=== PATIENT | male | born 1945 | race Caucasian/White ===

== ENCOUNTER 2020-09-19 11:56 | Day surgery (SDC) | payer OTHER, SELFPAY ==
--- NOTE | 2020-09-19 | PATH_ITS ---
[facility] Accession Number: [id number] . 01 Material submitted: . PART A: esophagus, E-G Junction - EG JUNCTION BIOPSY PART B: colon - CECAL POLYP . 02 Diagnosis: A. Gastroesophageal Junction, Biopsy: Squamocolumnar junctional mucosa with no diagnostic abnormality. Negative for intestinal metaplasia. Negative for dysplasia and malignancy. . B. Cecum, Polyp, Biopsy: Colonic mucosa with a benign lymphoid aggregate and mildly increased intraepithelial lymphocytes with an abnormal subepithelial collagen layer. Please see comment. MRV 09/25/2020 1822 Local . 02 Comment: Part B: Polypoid cecal mucosa shows features suggestive of collagenous colitis in the appropriate clinical and endoscopic setting. . 02 Electronically signed: . Daiana Hernandez MD, Pathologist NPI- [id number] . 01 Gross description: . Part A: EG JUNCTION BIOPSY: Received in formalin are 3 fragment(s) of fortune, soft tissue measuring 0.1 x 0.1 x 0.1 cm to 0.3 x 0.2 x 0.2 cm submitted entirely in 1 cassette(s) Part B: CECAL POLYP: Received in formalin is 1 fragment(s) of fortune, soft tissue measuring 0.3 x 0.3 x 0.2 cm submitted entirely in 1 cassette(s) /EDDIE 09/20/2020 1839 Local . 02 Pathologist provided ICD-10: K63.5 . 02 CPT . 460018, [id number] Performed at: [facility] [address] [id number] MD Griffin Rodriguez MD Phone: [phone] [facility]: [facility] [address] [place], [place] [id number] MD Daiana Hernandez MD Phone: [phone]
--- NOTE | 2020-09-19 08:23 | PM.HP.1 ---
History of Present Illness History of Present Illness Date Patient Seen: 09/19/20 Chief complaint: SDC Narrative: 75-year-old male with a family history of colon cancer family history gastric cancer here for screening, and colon polyp surveillance Meds Home Medications and Allergies Home Medications Medication Instructions Recorded Confirmed Type alfuzosin 10 mg PO DAILY 09/19/20 09/19/20 History finasteride 5 mg PO DAILY 09/19/20 09/19/20 History Allergies Allergy/AdvReac Type Severity Reaction Status Date / Time No Known Drug Allergies Allergy Verified 09/19/20 12:29 Exam Narrative Exam Narrative: General: Patient is well developed, not in apparent distress Cardiovascular: Regular rate and rhythm, no murmurs, rubs, or gallops; no evidence of edema; no palpable abdominal aortic aneurysm Gastrointestinal: Normoactive bowel sounds, soft, nontender, nondistended, no rebound tenderness, no hepatosplenomegaly, no evidence of hernia Assessment & Plan Assessment & Plan narrative: 75-year-old male with a family history of colon cancer and gastric cancer in first-degree relatives here for screening, and colon polyp surveillance Regarding the procedure(s), the risks and potential complications, benefits, and alternatives (including not doing the procedure) were discussed with the patient. The risks include but are not limited to bleeding, splenic injury, infection, perforation which may require surgical intervention, missed lesions, and adverse reactions to sedative medicines. After a question and answer period, the patient agreed to proceed with the procedure(s) and gives informed consent.
[2020-09-19 12:30] VITALS: BP 153/74; PULSE 64; RESP 17; TEMP 36.8; O2SAT 99; BMI 25.3
[2020-09-19 12:52] LABS: COVID19 -Nasal RAPID Negative (Negative)
[2020-09-19] MEDS: SODIUM CHLORIDE 0.9% 1,000 ML 70 ML IV (13:15)
--- NOTE | 2020-09-19 13:30 | P.OP.ENDO_ITS ---
Operative Date/Time/Diagnoses Date of procedure: 09/19/20 Procedure Notes Procedure in detail: Surgeon: Og Pederson MD Procedure: Esophagogastroduodenoscopy with biopsy and colonoscopy with polypectomy Preoperative diagnosis: Family history gastric cancer in 2 first-degree relatives; colon polyp surveillance, family history colon cancer in patient's mother Postoperative diagnosis: Irregular Z-line 43 cm status post biopsy, 3 cm hiatal hernia; cecal polyp status post polypectomy, sigmoid diverticulosis, grade 1 internal hemorrhoids Medications: 2 cc 4% viscous lidocaine; Conscious sedation using 4 mg IV of Midazolam and 100 mcg IV of Fentanyl (for EGD); 5 mg IV of Midazolam and 100 mcg IV of Fentanyl (total for both procedures) Preanesthesia Assessment An H and P was performed/updated and the Px?s ASA class is 2. The procedure was discussed in detail with the patient. The potential risks and complications including infection, bleeding, missed lesions, perforation, need for surgery in case of perforation, prolonged hospital stay, and were explained. A brief question and answer period was allotted and once all questions were answered, informed consent was obtained. The patient was brought back to the procedure room and placed on standard monitoring. The patient?s vital signs were monitored continuously throughout the entire procedure. Prior to starting, a timeout was performed to confirm the patient?s identity, allergies, medications, and procedure. Procedure in detail The patient was placed in left lateral decubitus position and a bite block was inserted. The tip of the upper endoscope was placed into the mouth and advanced without difficulty under direct visualization into the esophagus. Esophagus: There was an irregular Z-line at 43 cm, biopsies were performed to rule out Luna's or early cancer Stomach: 3 cm hiatal hernia; otherwise normal stomach Duodenum: Normal visualized duodenum up to the 2nd portion After the upper endoscopy, preparations were made for the colonoscopy. Once adequate sedation was obtained a EMERITA was performed. The digital rectal examination did not reveal any palpable lesions. The tip of the colonoscope was placed in the anal canal and advanced without difficulty all the way to the cecum which was identified by the appendiceal orifice and the ileocecal valve. In the cecum, a 2 cm sessile polyp was removed by means of cold Jumbo forceps. Resection and retrieval was complete with minimal bleeding In the sigmoid colon, does note of multiple medium-sized diverticula Retroflexion was performed in the rectum which revealed grade 1 internal hemorrhoids The patient tolerated the procedure well and will be brought back to the recovery area to be discharged once criteria are met. The prep was judged to be good and adequate to identify polyps less than 5 mm. The withdrawal time was 9 minutes. The total physician intraservice time was 24 minutes. Complications There were no complications and estimated blood loss was minimal. Recommendations Resume previous diet Continue outpatient medications Follow-up pathology results Repeat colonoscopy in 5 years for surveillance An emergency contact number was given to the patient for any complications relat ed to the procedure
[2020-09-19] MEDS: fentaNYL 250 MCG/5 ML INJ IV (13:35)
[2020-09-19] MEDS: MIDAZOLAM 5 MG/5 ML VIAL IV (13:36)
[2020-09-19] MEDS: LIDOCAINE 4% SOLN 50 ML 20 ML TOP (13:37)
[2020-09-19 14:07] VITALS: BP 116/64; PULSE 63; RESP 12; TEMP 37.1; O2SAT 97
[2020-09-19 14:12] VITALS: BP 110/59; PULSE 60; RESP 12; O2SAT 97
[2020-09-19 14:17] VITALS: BP 107/61; PULSE 72; RESP 12; O2SAT 97
[2020-09-19 14:23] VITALS: BP 123/68; PULSE 68; RESP 16; TEMP 37.2; O2SAT 97
[2020-09-19 15:00] VITALS: BP 126/67; PULSE 64; RESP 16; TEMP 36.7; O2SAT 98
--- NOTE | 2020-09-19 15:21 | SUR.PHASEII ---
1500-Pt up and ambulating gait steady, iv dcd site clear. Pt denies pain or nausea and tolerating po fluids well. All dc instructions given and pt verbalizes understanding. at curbside now. Pt getting dressed and to bathroom voiding without problems
== END 2020-09-19 15:15 | disposition home or self-care (01) ==
PROVIDERS: PCP Family Medicine; Referring Provider Internal Medicine Gastroenterology; Visit Provider Internal Medicine Gastroenterology
PROC: 0DJ08ZZ Inspection of Upper Intestinal Tract, Via Natural or Artificial Opening Endoscopic (ICD-10-PCS; CPT 43235; 2020-09-19 13:30)
PROC: 0DJD8ZZ Inspection of Lower Intestinal Tract, Via Natural or Artificial Opening Endoscopic (ICD-10-PCS; CPT 45378; 2020-09-19 13:30)
DX: Z12.11 Encounter for screening for malignant neoplasm of colon (principal); Z86.010 Personal history of colon polyps; Z80.0 Family history of malignant neoplasm of digestive organs; Z20.822 Contact with and (suspected) exposure to COVID-19; K57.30 Diverticulosis of large intestine without perforation or abscess without bleeding; K64.0 First degree hemorrhoids; K63.5 Polyp of colon
CPT/HCPCS: 45380; 43239; 87635; J2250; J3010

== ENCOUNTER 2025-04-18 06:12 | Inpatient (IN) | payer OTHER, SELFPAY ==
[2025-04-18] VITALS (43 sets, daily range): BP systolic 134–197; BP diastolic 65–102; PULSE 70–101; RESP 11–24; TEMP 36.8; O2SAT 92–98; BMI 31.3
--- NOTE | 2025-04-18 06:37 | ED_ITS ---
HPI - Extremity Injury (Lower) <Pastor Ramirez MD - Last Filed: 04/24/25 22:09> General Chief Complaint: Extremity Injury, Lower Stated Complaint: right knee pain Time Seen by Provider: 04/18/25 06:29 Mode of arrival: EMS History of Present Illness HPI Narrative: 79-year-old male patient with a history of hypertension and prostate cancer along with heart valve repair and anticoagulation on Eliquis complains of worsening right knee pain since yesterday with swelling and no recent trauma. No fever or chills. Related Data Home Medications ?Medication ?Instructions ?Recorded ?Confirmed albuterol 90 mcg/actuation aerosol mcg inhalation 04/01 02/23 inhaler ascorbic acid (vitamin C) PO 04/19/25 calcium phos,dibas-vitamin D3 PO 04/19/25 citalopram 20 mg tablet 20 mg PO BID 04/19/25 Allergies Allergy/AdvReac Type Severity Reaction Status Date / Time No Known Drug Allergies Allergy Verified 09/19/20 12:29 Review of Systems <Pastor Ramirez MD - Last Filed: 04/24/25 22:09> Review of Systems ROS Unobtainable: All systems reviewed & are unremarkable except as noted in HPI and below Musculoskeletal Musculoskeletal: Reports as per HPI Patient History <Pastor Ramirez MD - Last Filed: 04/24/25 22:09> Social History household members: none Smoking Status: Never smoker alcohol intake: current alcohol intake frequency: a few times a month Exam <Pastor Ramirez MD - Last Filed: 04/24/25 22:09> Narrative Exam Narrative: General: Alert and conversant. Mild distress. Appears well nourished and well hydrated Lungs: Nonlabored respiration. Musculoskeletal: Patient has a large effusion around the right knee with no warmth or erythema. Tenderness to range of motion. No bony tenderness. Neuro: Alert and oriented. Cranial nerves, motor, sensory and cerebellar all grossly intact. No focal deficit Skin: Warm and normal color. No rashes Psychological: Normal affect and interaction. No evidence of delusion or psychosis. Normal mood. Initial Vital Signs Initial Vital Signs: Vital Signs Temperature 98.2 F 04/18/25 06:25 Pulse Rate 76 04/18/25 06:25 Respiratory Rate 18 04/18/25 06:25 Blood Pressure 159/77 H 04/18/25 06:25 Pulse Oximetry 96 04/18/25 06:25 Oxygen Delivery Method Room Air 04/18/25 06:25 <Woody Mcintosh MD - Last Filed: 04/18/25 16:37> Initial Vital Signs Initial Vital Signs: Vital Signs Temperature 98.2 F 04/18/25 06:25 Pulse Rate 76 04/18/25 06:25 Respiratory Rate 18 04/18/25 06:25 Blood Pressure 159/77 H 04/18/25 06:25 Pulse Oximetry 96 04/18/25 06:25 Oxygen Delivery Method Room Air 04/18/25 06:25 <Nara Scott DO - Last Filed: 04/26/25 17:06> Initial Vital Signs Initial Vital Signs: Vital Signs Temperature 98.2 F 04/18/25 06:25 Pulse Rate 76 04/18/25 06:25 Respiratory Rate 18 04/18/25 06:25 Blood Pressure 159/77 H 04/18/25 06:25 Pulse Oximetry 96 04/18/25 06:25 Oxygen Delivery Method Room Air 04/18/25 06:25 Course <Pastor Ramirez MD - Last Filed: 04/24/25 22:09> Orders Ordered: Hydrocodone Bitart/Acetaminophen (Hydrocodone/Acet 5/325 Tablet) 2 tab PO Q4H PRN PRN Reason: Pain, Severe (7-10) Last Admin: 04/26/25 01:28 Dose: 2 tab Documented By: Admin: 04/25/25 13:27 Dose: 2 tab Documented By: Admin: 04/25/25 07:42 Dose: 2 tab Documented By: Admin: 04/24/25 21:54 Dose: 2 tab Documented By: Admin: 04/24/25 16:53 Dose: 2 tab Documented By: Admin: 04/24/25 05:48 Dose: 2 tab Documented By: Admin: 04/23/25 14:54 Dose: 2 tab Documented By: Admin: 04/23/25 10:28 Dose: 2 tab Documented By: Admin: 04/23/25 05:35 Dose: 2 tab Documented By: Admin: 04/22/25 21:02 Dose: 2 tab Documented By: Admin: 04/22/25 13:13 Dose: 2 tab Documented By: Admin: 04/22/25 08:20 Dose: 2 tab Documented By: Admin: 04/22/25 01:22 Dose: 2 tab Documented By: Admin: 04/21/25 20:51 Dose: 2 tab Documented By: Admin: 04/21/25 16:39 Dose: 2 tab Documented By: CESocorro Admin: 04/21/25 08:37 Dose: 2 tab Documented By: Admin: 04/21/25 03:28 Dose: 2 tab Documented By: Admin: 04/20/25 19:50 Dose: 2 tab Documented By: Admin: 04/20/25 15:46 Dose: 2 tab Documented By: Admin: 04/20/25 08:25 Dose: 2 tab Documented By: Admin: 04/19/25 18:45 Dose: 2 tab Documented By: MARCIO Apixaban (Apixaban 5 Mg Tablet) 5 mg PO BID [facility] Last Admin: 04/26/25 11:28 Dose: 5 mg Documented By: RACHID Atenolol (Atenolol 25 Mg Tablet) 50 mg PO BID [facility] Last Admin: 04/26/25 09:17 Dose: 50 mg Documented By: Admin: 04/25/25 20:52 Dose: 50 mg Documented By: Admin: 04/25/25 08:51 Dose: 50 mg Documented By: Admin: 04/24/25 21:54 Dose: 50 mg Documented By: Admin: 04/24/25 09:52 Dose: 50 mg Documented By: Admin: 04/23/25 20:57 Dose: 50 mg Documented By: Admin: 04/23/25 10:32 Dose: 50 mg Documented By: Admin: 04/22/25 21:02 Dose: 50 mg Documented By: Admin: 04/22/25 08:20 Dose: 50 mg Documented By: Admin: 04/21/25 20:57 Dose: Not Given Documented By: Admin: 04/21/25 08:37 Dose: 50 mg Documented By: Admin: 04/20/25 20:44 Dose: 50 mg Documented By: Admin: 04/20/25 08:30 Dose: 50 mg Documented By: Admin: 04/19/25 20:43 Dose: 50 mg Documented By: Admin: 04/19/25 18:41 Dose: 50 mg Documented By: MARCIO Citalopram Hydrobromide (Citalopram 10 Mg Tablet) 20 mg PO BID [facility] Last Admin: 04/26/25 09:17 Dose: 20 mg Documented By: Admin: 04/25/25 20:51 Dose: 20 mg Documented By: Admin: 04/25/25 08:51 Dose: 20 mg Documented By: Admin: 04/24/25 21:53 Dose: 20 mg Documented By: Admin: 04/24/25 09:51 Dose: 20 mg Documented By: Admin: 04/23/25 20:57 Dose: 20 mg Documented By: Admin: 04/23/25 10:29 Dose: 20 mg Documented By: Admin: 04/22/25 21:02 Dose: 20 mg Documented By: Admin: 04/22/25 08:20 Dose: 20 mg Documented By: Admin: 04/21/25 20:49 Dose: 20 mg Documented By: Admin: 04/21/25 08:37 Dose: 20 mg Documented By: Admin: 04/20/25 20:45 Dose: 20 mg Documented By: Admin: 04/20/25 08:26 Dose: 20 mg Documented By: Admin: 04/19/25 20:44 Dose: 20 mg Documented By: CHELSIE Hydrocortisone (Hydrocortisone 2.5% Cream 30 Gm) 1 applic TOP BID PRN PRN Reason: Itching Last Admin: 04/25/25 08:56 Dose: 1 applic Documented By: Admin: 04/24/25 17:56 Dose: 1 applic Documented By: Admin: 04/24/25 09:51 Dose: 1 applic Documented By: Admin: 04/23/25 21:02 Dose: 1 applic Documented By: Admin: 04/23/25 12:03 Dose: 1 applic Documented By: Admin: 04/22/25 18:14 Dose: 1 applic Documented By: Admin: 04/22/25 11:37 Dose: 1 applic Documented By: LANE Naloxone HCl (Naloxone 0.4 Mg/Ml Vial) 0.2 mg IV Q2MIN PRN PRN Reason: Opiate Reversal Non-Formulary Medication (Alfuzosin) 10 mg PO DAILY [facility] Last Admin: 04/26/25 09:18 Dose: Not Given Documented By: Admin: 04/25/25 08:52 Dose: Not Given Documented By: Admin: 04/24/25 09:51 Dose: Not Given Documented By: Admin: 04/23/25 10:32 Dose: Not Given Documented By: ESLam Admin: 04/22/25 09:00 Dose: Not Given Documented By: Admin: 04/21/25 09:00 Dose: Not Given Documented By: Admin: 04/20/25 08:32 Dose: Not Given Documented By: JIE Abiraterone 250mg (Tabs) 4 each PO DAILY@0700 [facility] Last Admin: 04/26/25 07:30 Dose: 4 each Documented By: JACINDA Oxycodone/Acetaminophen (Oxycodone/Acetaminophen 5/325 Tablet) 2 tab PO Q6H PRN PRN Reason: Pain, Moderate (4-6) Last Admin: 04/26/25 11:28 Dose: 2 tab Documented By: Admin: 04/25/25 20:51 Dose: 2 tab Documented By: Admin: 04/23/25 20:57 Dose: 2 tab Documented By: Admin: 04/20/25 20:50 Dose: 2 tab Documented By: Admin: 04/19/25 20:43 Dose: 2 tab Documented By: Admin: 04/19/25 10:54 Dose: 2 tab Documented By: DION(2) Polyethylene Glycol (Polyethylene Glycol 3350 17 Gm Powd.Pack) 17 gm PO DAILY [facility] Last Admin: 04/26/25 09:18 Dose: Not Given Documented By: Admin: 04/25/25 08:52 Dose: 17 gm Documented By: Admin: 04/24/25 09:52 Dose: Not Given Documented By: Admin: 04/23/25 10:30 Dose: Not Given Documented By: Admin: 04/22/25 08:20 Dose: 17 gm Documented By: Admin: 04/21/25 16:36 Dose: 17 gm Documented By: LANE Sodium Chloride (Sodium Chloride 0.9% Flush) 10 ml IV PRN PRN PRN Reason: Flush Discontinued Medications Finasteride (Finasteride 5 Mg Tablet) 5 mg PO DAILY [facility] Hydromorphone HCl (Hydromorphone Hcl 0.5 Mg/0.5 Ml Syringe) 0.5 mg IV NOW ONE Stop: 04/18/25 13:21 Last Admin: 04/18/25 13:32 Dose: 0.5 mg Documented By: RLC Hydromorphone HCl (Hydromorphone Hcl 0.5 Mg/0.5 Ml Syringe) 0.5 mg IV NOW ONE Stop: 04/18/25 15:43 Last Admin: 04/18/25 15:46 Dose: 0.5 mg Documented By: RLC Hydromorphone HCl (Hydromorphone Hcl 0.5 Mg/0.5 Ml Syringe) 0.5 mg IV NOW ONE Stop: 04/18/25 19:20 Last Admin: 04/18/25 19:36 Dose: 0.5 mg Documented By: JONNY Acetaminophen (Ofirmev) 1,000 mg in 100 mls @ 400 mls/hr IV NOW ONE Stop: 04/18/25 08:48 Last Infusion: 04/18/25 09:09 Dose: Infused Documented By: ESV(2) Admin: 04/18/25 08:45 Dose: 400 mls/hr Documented By: EB Lidocaine/Epinephrine (Lidocaine 1% W/Epi 10ml) 4 ml INJ INTRA-OP ONE Stop: 04/18/25 14:02 Last Admin: 04/18/25 14:52 Dose: 4 ml Documented By: JONNY Morphine Sulfate (Morphine 4 Mg/Ml Inj) 4 mg IV NOW ONE Stop: 04/18/25 06:52 Last Admin: 04/18/25 07:37 Dose: 4 mg Documented By: SGF Morphine Sulfate (Morphine 4 Mg/Ml Inj) 4 mg IV NOW ONE Stop: 04/18/25 11:09 Last Admin: 04/18/25 11:17 Dose: 4 mg Documented By: JONNY Non-Formulary Medication (Abiraterone ) 1 g PO DAILY [facility] Last Admin: 04/22/25 23:55 Dose: Not Given Documented By: Admin: 04/21/25 09:00 Dose: Not Given Documented By: Admin: 04/20/25 08:32 Dose: Not Given Documented By: JIE Abiraterone 250mg (Tabs) 1 each PO DAILY@0700 [facility] Last Admin: 04/25/25 06:10 Dose: 1 each Documented By: Admin: 04/24/25 05:46 Dose: 1 each Documented By: Admin: 04/23/25 10:36 Dose: 1 each Documented By: Admin: 04/22/25 11:37 Dose: 1 each Documented By: LANE Ondansetron HCl (Ondansetron 4 Mg/2 Ml Inj) 4 mg IV NOW ONE Stop: 04/18/25 11:09 Last Admin: 04/18/25 11:17 Dose: 4 mg Documented By: RLMercedes Sodium Chloride (Sodium Chloride 0.9% Flush) 10 ml IV BID [facility] Last Admin: 04/25/25 08:52 Dose: Not Given Documented By: Admin: 04/24/25 21:54 Dose: 10 ml Documented By: Admin: 04/24/25 10:22 Dose: 10 ml Documented By: Admin: 04/23/25 20:59 Dose: 10 ml Documented By: Admin: 04/23/25 10:36 Dose: 10 ml Documented By: Admin: 04/22/25 21:02 Dose: 10 ml Documented By: Admin: 04/22/25 09:00 Dose: 10 ml Documented By: LANE Vital Signs Vital signs: Vital Signs - 8 hr 04/18/25 11:30 04/18/25 11:31 04/18/25 11:31 Pulse Rate 79 78 Respiratory Rate Blood Pressure 142/98 H Pulse Oximetry 95 94 Oxygen Delivery Method 04/18/25 12:00 04/18/25 12:00 04/18/25 12:30 Pulse Rate 72 75 Respiratory Rate 18 20 Blood Pressure 160/79 H Pulse Oximetry 95 97 Oxygen Delivery Method Room Air 04/18/25 13:00 04/18/25 13:00 04/18/25 13:30 Pulse Rate 73 Respiratory Rate 13 Blood Pressure 171/82 H 170/92 H Pulse Oximetry 97 Oxygen Delivery Method 04/18/25 13:30 04/18/25 14:00 04/18/25 14:00 Pulse Rate 74 76 Respiratory Rate 16 17 Blood Pressure 171/99 H Pulse Oximetry 97 97 Oxygen Delivery Method 04/18/25 14:30 04/18/25 14:30 04/18/25 15:00 Pulse Rate 77 77 Respiratory Rate 14 12 Blood Pressure 193/86 H Pulse Oximetry 97 97 Oxygen Delivery Method 04/18/25 15:01 04/18/25 15:01 04/18/25 15:30 Pulse Rate 76 78 Respiratory Rate 11 L 16 Blood Pressure 165/85 H Pulse Oximetry 96 98 Oxygen Delivery Method 04/18/25 15:30 04/18/25 16:00 04/18/25 16:00 Pulse Rate 79 Respiratory Rate 12 Blood Pressure 173/83 H 173/84 H Pulse Oximetry 95 Oxygen Delivery Method 04/18/25 16:30 04/18/25 16:31 04/18/25 16:31 Pulse Rate 83 81 Respiratory Rate 14 14 Blood Pressure 167/91 H Pulse Oximetry 96 96 Oxygen Delivery Method 04/18/25 17:00 04/18/25 17:30 04/18/25 17:45 Pulse Rate 84 85 93 H Respiratory Rate 11 L 13 20 Blood Pressure Pulse Oximetry 96 96 96 Oxygen Delivery Method 04/18/25 17:45 04/18/25 18:00 04/18/25 18:30 Pulse Rate 88 85 Respiratory Rate 16 22 Blood Pressure 185/81 H Pulse Oximetry 96 95 Oxygen Delivery Method <Woody Mcintosh MD - Last Filed: 04/18/25 16:37> Orders Ordered: Hydrocodone Bitart/Acetaminophen (Hydrocodone/Acet 5/325 Tablet) 2 tab PO Q4H PRN PRN Reason: Pain, Severe (7-10) Last Admin: 04/26/25 01:28 Dose: 2 tab Documented By: Admin: 04/25/25 13:27 Dose: 2 tab Documented By: Admin: 04/25/25 07:42 Dose: 2 tab Documented By: Admin: 04/24/25 21:54 Dose: 2 tab Documented By: Admin: 04/24/25 16:53 Dose: 2 tab Documented By: Admin: 04/24/25 05:48 Dose: 2 tab Documented By: Admin: 04/23/25 14:54 Dose: 2 tab Documented By: Admin: 04/23/25 10:28 Dose: 2 tab Documented By: Admin: 04/23/25 05:35 Dose: 2 tab Documented By: Admin: 04/22/25 21:02 Dose: 2 tab Documented By: Admin: 04/22/25 13:13 Dose: 2 tab Documented By: Admin: 04/22/25 08:20 Dose: 2 tab Documented By: Admin: 04/22/25 01:22 Dose: 2 tab Documented By: Admin: 04/21/25 20:51 Dose: 2 tab Documented By: Admin: 04/21/25 16:39 Dose: 2 tab Documented By: Admin: 04/21/25 08:37 Dose: 2 tab Documented By: Admin: 04/21/25 03:28 Dose: 2 tab Documented By: Admin: 04/20/25 19:50 Dose: 2 tab Documented By: Admin: 04/20/25 15:46 Dose: 2 tab Documented By: Admin: 04/20/25 08:25 Dose: 2 tab Documented By: Admin: 04/19/25 18:45 Dose: 2 tab Documented By: MARCIO Apixaban (Apixaban 5 Mg Tablet) 5 mg PO BID [facility] Last Admin: 04/26/25 11:28 Dose: 5 mg Documented By: RACHID Atenolol (Atenolol 25 Mg Tablet) 50 mg PO BID [facility] Last Admin: 04/26/25 09:17 Dose: 50 mg Documented By: Admin: 04/25/25 20:52 Dose: 50 mg Documented By: Admin: 04/25/25 08:51 Dose: 50 mg Documented By: Admin: 04/24/25 21:54 Dose: 50 mg Documented By: Admin: 04/24/25 09:52 Dose: 50 mg Documented By: Admin: 04/23/25 20:57 Dose: 50 mg Documented By: Admin: 04/23/25 10:32 Dose: 50 mg Documented By: Admin: 04/22/25 21:02 Dose: 50 mg Documented By: Admin: 04/22/25 08:20 Dose: 50 mg Documented By: Admin: 04/21/25 20:57 Dose: Not Given Documented By: Admin: 04/21/25 08:37 Dose: 50 mg Documented By: Admin: 04/20/25 20:44 Dose: 50 mg Documented By: Admin: 04/20/25 08:30 Dose: 50 mg Documented By: Admin: 04/19/25 20:43 Dose: 50 mg Documented By: Admin: 04/19/25 18:41 Dose: 50 mg Documented By: MARCIO Citalopram Hydrobromide (Citalopram 10 Mg Tablet) 20 mg PO BID [facility] Last Admin: 04/26/25 09:17 Dose: 20 mg Documented By: Admin: 04/25/25 20:51 Dose: 20 mg Documented By: Admin: 04/25/25 08:51 Dose: 20 mg Documented By: Admin: 04/24/25 21:53 Dose: 20 mg Documented By: Admin: 04/24/25 09:51 Dose: 20 mg Documented By: Admin: 04/23/25 20:57 Dose: 20 mg Documented By: Admin: 04/23/25 10:29 Dose: 20 mg Documented By: Admin: 04/22/25 21:02 Dose: 20 mg Documented By: Admin: 04/22/25 08:20 Dose: 20 mg Documented By: Admin: 04/21/25 20:49 Dose: 20 mg Documented By: Admin: 04/21/25 08:37 Dose: 20 mg Documented By: Admin: 04/20/25 20:45 Dose: 20 mg Documented By: Admin: 04/20/25 08:26 Dose: 20 mg Documented By: Admin: 04/19/25 20:44 Dose: 20 mg Documented By: CHELSIE Hydrocortisone (Hydrocortisone 2.5% Cream 30 Gm) 1 applic TOP BID PRN PRN Reason: Itching Last Admin: 04/25/25 08:56 Dose: 1 applic Documented By: Admin: 04/24/25 17:56 Dose: 1 applic Documented By: Admin: 04/24/25 09:51 Dose: 1 applic Documented By: Admin: 04/23/25 21:02 Dose: 1 applic Documented By: Admin: 04/23/25 12:03 Dose: 1 applic Documented By: ESLam Admin: 04/22/25 18:14 Dose: 1 applic Documented By: Admin: 04/22/25 11:37 Dose: 1 applic Documented By: LANE Naloxone HCl (Naloxone 0.4 Mg/Ml Vial) 0.2 mg IV Q2MIN PRN PRN Reason: Opiate Reversal Non-Formulary Medication (Alfuzosin) 10 mg PO DAILY [facility] Last Admin: 04/26/25 09:18 Dose: Not Given Documented By: Admin: 04/25/25 08:52 Dose: Not Given Documented By: Admin: 04/24/25 09:51 Dose: Not Given Documented By: Admin: 04/23/25 10:32 Dose: Not Given Documented By: Admin: 04/22/25 09:00 Dose: Not Given Documented By: Admin: 04/21/25 09:00 Dose: Not Given Documented By: Admin: 04/20/25 08:32 Dose: Not Given Documented By: JIE Abiraterone 250mg (Tabs) 4 each PO DAILY@0700 [facility] Last Admin: 04/26/25 07:30 Dose: 4 each Documented By: TD Oxycodone/Acetaminophen (Oxycodone/Acetaminophen 5/325 Tablet) 2 tab PO Q6H PRN PRN Reason: Pain, Moderate (4-6) Last Admin: 04/26/25 11:28 Dose: 2 tab Documented By: Admin: 04/25/25 20:51 Dose: 2 tab Documented By: Admin: 04/23/25 20:57 Dose: 2 tab Documented By: Admin: 04/20/25 20:50 Dose: 2 tab Documented By: Admin: 04/19/25 20:43 Dose: 2 tab Documented By: Admin: 04/19/25 10:54 Dose: 2 tab Documented By: DION(2) Polyethylene Glycol (Polyethylene Glycol 3350 17 Gm Powd.Pack) 17 gm PO DAILY [facility] Last Admin: 04/26/25 09:18 Dose: Not Given Documented By: Admin: 04/25/25 08:52 Dose: 17 gm Documented By: Admin: 04/24/25 09:52 Dose: Not Given Documented By: Admin: 04/23/25 10:30 Dose: Not Given Documented By: ESLam Admin: 04/22/25 08:20 Dose: 17 gm Documented By: Admin: 04/21/25 16:36 Dose: 17 gm Documented By: LANE Sodium Chloride (Sodium Chloride 0.9% Flush) 10 ml IV PRN PRN PRN Reason: Flush Discontinued Medications Finasteride (Finasteride 5 Mg Tablet) 5 mg PO DAILY [facility] Hydromorphone HCl (Hydromorphone Hcl 0.5 Mg/0.5 Ml Syringe) 0.5 mg IV NOW ONE Stop: 04/18/25 13:21 Last Admin: 04/18/25 13:32 Dose: 0.5 mg Documented By: RLC Hydromorphone HCl (Hydromorphone Hcl 0.5 Mg/0.5 Ml Syringe) 0.5 mg IV NOW ONE Stop: 04/18/25 15:43 Last Admin: 04/18/25 15:46 Dose: 0.5 mg Documented By: RLC Hydromorphone HCl (Hydromorphone Hcl 0.5 Mg/0.5 Ml Syringe) 0.5 mg IV NOW ONE Stop: 04/18/25 19:20 Last Admin: 04/18/25 19:36 Dose: 0.5 mg Documented By: RLC Acetaminophen (Ofirmev) 1,000 mg in 100 mls @ 400 mls/hr IV NOW ONE Stop: 04/18/25 08:48 Last Infusion: 04/18/25 09:09 Dose: Infused Documented By: ESV(2) Admin: 04/18/25 08:45 Dose: 400 mls/hr Documented By: EB Lidocaine/Epinephrine (Lidocaine 1% W/Epi 10ml) 4 ml INJ INTRA-OP ONE Stop: 04/18/25 14:02 Last Admin: 04/18/25 14:52 Dose: 4 ml Documented By: RLMercedes Morphine Sulfate (Morphine 4 Mg/Ml Inj) 4 mg IV NOW ONE Stop: 04/18/25 06:52 Last Admin: 04/18/25 07:37 Dose: 4 mg Documented By: SGF Morphine Sulfate (Morphine 4 Mg/Ml Inj) 4 mg IV NOW ONE Stop: 04/18/25 11:09 Last Admin: 04/18/25 11:17 Dose: 4 mg Documented By: RLMercedes Non-Formulary Medication (Abiraterone ) 1 g PO DAILY [facility] Last Admin: 04/22/25 23:55 Dose: Not Given Documented By: Admin: 04/21/25 09:00 Dose: Not Given Documented By: CESocorro Admin: 04/20/25 08:32 Dose: Not Given Documented By: JIE Abiraterone 250mg (Tabs) 1 each PO DAILY@0700 [facility] Last Admin: 04/25/25 06:10 Dose: 1 each Documented By: Admin: 04/24/25 05:46 Dose: 1 each Documented By: Admin: 04/23/25 10:36 Dose: 1 each Documented By: Admin: 04/22/25 11:37 Dose: 1 each Documented By: LANE Ondansetron HCl (Ondansetron 4 Mg/2 Ml Inj) 4 mg IV NOW ONE Stop: 04/18/25 11:09 Last Admin: 04/18/25 11:17 Dose: 4 mg Documented By: RLC Sodium Chloride (Sodium Chloride 0.9% Flush) 10 ml IV BID [facility] Last Admin: 04/25/25 08:52 Dose: Not Given Documented By: Admin: 04/24/25 21:54 Dose: 10 ml Documented By: Admin: 04/24/25 10:22 Dose: 10 ml Documented By: Admin: 04/23/25 20:59 Dose: 10 ml Documented By: Admin: 04/23/25 10:36 Dose: 10 ml Documented By: Admin: 04/22/25 21:02 Dose: 10 ml Documented By: Admin: 04/22/25 09:00 Dose: 10 ml Documented By: LANE Vital Signs Vital signs: Vital Signs - 8 hr 04/18/25 11:30 04/18/25 11:31 04/18/25 11:31 Pulse Rate 79 78 Respiratory Rate Blood Pressure 142/98 H Pulse Oximetry 95 94 Oxygen Delivery Method 04/18/25 12:00 04/18/25 12:00 04/18/25 12:30 Pulse Rate 72 75 Respiratory Rate 18 20 Blood Pressure 160/79 H Pulse Oximetry 95 97 Oxygen Delivery Method Room Air 04/18/25 13:00 04/18/25 13:00 04/18/25 13:30 Pulse Rate 73 Respiratory Rate 13 Blood Pressure 171/82 H 170/92 H Pulse Oximetry 97 Oxygen Delivery Method 04/18/25 13:30 04/18/25 14:00 04/18/25 14:00 Pulse Rate 74 76 Respiratory Rate 16 17 Blood Pressure 171/99 H Pulse Oximetry 97 97 Oxygen Delivery Method 04/18/25 14:30 04/18/25 14:30 04/18/25 15:00 Pulse Rate 77 77 Respiratory Rate 14 12 Blood Pressure 193/86 H Pulse Oximetry 97 97 Oxygen Delivery Method 04/18/25 15:01 04/18/25 15:01 04/18/25 15:30 Pulse Rate 76 78 Respiratory Rate 11 L 16 Blood Pressure 165/85 H Pulse Oximetry 96 98 Oxygen Delivery Method 04/18/25 15:30 04/18/25 16:00 04/18/25 16:00 Pulse Rate 79 Respiratory Rate 12 Blood Pressure 173/83 H 173/84 H Pulse Oximetry 95 Oxygen Delivery Method 04/18/25 16:30 04/18/25 16:31 04/18/25 16:31 Pulse Rate 83 81 Respiratory Rate 14 14 Blood Pressure 167/91 H Pulse Oximetry 96 96 Oxygen Delivery Method 04/18/25 17:00 04/18/25 17:30 04/18/25 17:45 Pulse Rate 84 85 93 H Respiratory Rate 11 L 13 20 Blood Pressure Pulse Oximetry 96 96 96 Oxygen Delivery Method 04/18/25 17:45 04/18/25 18:00 04/18/25 18:30 Pulse Rate 88 85 Respiratory Rate 16 22 Blood Pressure 185/81 H Pulse Oximetry 96 95 Oxygen Delivery Method <Nara Scott, - Last Filed: 04/26/25 17:06> Orders Ordered: Hydrocodone Bitart/Acetaminophen (Hydrocodone/Acet 5/325 Tablet) 2 tab PO Q4H PRN PRN Reason: Pain, Severe (7-10) Last Admin: 04/26/25 01:28 Dose: 2 tab Documented By: Admin: 04/25/25 13:27 Dose: 2 tab Documented By: Admin: 04/25/25 07:42 Dose: 2 tab Documented By: Admin: 04/24/25 21:54 Dose: 2 tab Documented By: Admin: 04/24/25 16:53 Dose: 2 tab Documented By: Admin: 04/24/25 05:48 Dose: 2 tab Documented By: Admin: 04/23/25 14:54 Dose: 2 tab Documented By: Admin: 04/23/25 10:28 Dose: 2 tab Documented By: Admin: 04/23/25 05:35 Dose: 2 tab Documented By: Admin: 04/22/25 21:02 Dose: 2 tab Documented By: Admin: 04/22/25 13:13 Dose: 2 tab Documented By: Admin: 04/22/25 08:20 Dose: 2 tab Documented By: Admin: 04/22/25 01:22 Dose: 2 tab Documented By: Admin: 04/21/25 20:51 Dose: 2 tab Documented By: Admin: 04/21/25 16:39 Dose: 2 tab Documented By: Admin: 04/21/25 08:37 Dose: 2 tab Documented By: Admin: 04/21/25 03:28 Dose: 2 tab Documented By: Admin: 04/20/25 19:50 Dose: 2 tab Documented By: Admin: 04/20/25 15:46 Dose: 2 tab Documented By: Admin: 04/20/25 08:25 Dose: 2 tab Documented By: Admin: 04/19/25 18:45 Dose: 2 tab Documented By: MARCIO Apixaban (Apixaban 5 Mg Tablet) 5 mg PO BID [facility] Last Admin: 04/26/25 11:28 Dose: 5 mg Documented By: RACHID Atenolol (Atenolol 25 Mg Tablet) 50 mg PO BID [facility] Last Admin: 04/26/25 09:17 Dose: 50 mg Documented By: Admin: 04/25/25 20:52 Dose: 50 mg Documented By: Admin: 04/25/25 08:51 Dose: 50 mg Documented By: Admin: 04/24/25 21:54 Dose: 50 mg Documented By: Admin: 04/24/25 09:52 Dose: 50 mg Documented By: Admin: 04/23/25 20:57 Dose: 50 mg Documented By: Admin: 04/23/25 10:32 Dose: 50 mg Documented By: Admin: 04/22/25 21:02 Dose: 50 mg Documented By: Admin: 04/22/25 08:20 Dose: 50 mg Documented By: Admin: 04/21/25 20:57 Dose: Not Given Documented By: Admin: 04/21/25 08:37 Dose: 50 mg Documented By: Admin: 04/20/25 20:44 Dose: 50 mg Documented By: Admin: 04/20/25 08:30 Dose: 50 mg Documented By: Admin: 04/19/25 20:43 Dose: 50 mg Documented By: Admin: 04/19/25 18:41 Dose: 50 mg Documented By: MARCIO Citalopram Hydrobromide (Citalopram 10 Mg Tablet) 20 mg PO BID [facility] Last Admin: 04/26/25 09:17 Dose: 20 mg Documented By: Admin: 04/25/25 20:51 Dose: 20 mg Documented By: Admin: 04/25/25 08:51 Dose: 20 mg Documented By: Admin: 04/24/25 21:53 Dose: 20 mg Documented By: Admin: 04/24/25 09:51 Dose: 20 mg Documented By: Admin: 04/23/25 20:57 Dose: 20 mg Documented By: Admin: 04/23/25 10:29 Dose: 20 mg Documented By: ESLam Admin: 04/22/25 21:02 Dose: 20 mg Documented By: Admin: 04/22/25 08:20 Dose: 20 mg Documented By: Admin: 04/21/25 20:49 Dose: 20 mg Documented By: Admin: 04/21/25 08:37 Dose: 20 mg Documented By: Admin: 04/20/25 20:45 Dose: 20 mg Documented By: Admin: 04/20/25 08:26 Dose: 20 mg Documented By: Admin: 04/19/25 20:44 Dose: 20 mg Documented By: CHELSIE Hydrocortisone (Hydrocortisone 2.5% Cream 30 Gm) 1 applic TOP BID PRN PRN Reason: Itching Last Admin: 04/25/25 08:56 Dose: 1 applic Documented By: Admin: 04/24/25 17:56 Dose: 1 applic Documented By: Admin: 04/24/25 09:51 Dose: 1 applic Documented By: Admin: 04/23/25 21:02 Dose: 1 applic Documented By: Admin: 04/23/25 12:03 Dose: 1 applic Documented By: ESLam Admin: 04/22/25 18:14 Dose: 1 applic Documented By: Admin: 04/22/25 11:37 Dose: 1 applic Documented By: LANE Naloxone HCl (Naloxone 0.4 Mg/Ml Vial) 0.2 mg IV Q2MIN PRN PRN Reason: Opiate Reversal Non-Formulary Medication (Alfuzosin) 10 mg PO DAILY [facility] Last Admin: 04/26/25 09:18 Dose: Not Given Documented By: Admin: 04/25/25 08:52 Dose: Not Given Documented By: Admin: 04/24/25 09:51 Dose: Not Given Documented By: Admin: 04/23/25 10:32 Dose: Not Given Documented By: Admin: 04/22/25 09:00 Dose: Not Given Documented By: Admin: 04/21/25 09:00 Dose: Not Given Documented By: Admin: 04/20/25 08:32 Dose: Not Given Documented By: JIE Abiraterone 250mg (Tabs) 4 each PO DAILY@0700 [facility] Last Admin: 04/26/25 07:30 Dose: 4 each Documented By: JACINDA Oxycodone/Acetaminophen (Oxycodone/Acetaminophen 5/325 Tablet) 2 tab PO Q6H PRN PRN Reason: Pain, Moderate (4-6) Last Admin: 04/26/25 11:28 Dose: 2 tab Documented By: Admin: 04/25/25 20:51 Dose: 2 tab Documented By: Admin: 04/23/25 20:57 Dose: 2 tab Documented By: Admin: 04/20/25 20:50 Dose: 2 tab Documented By: Admin: 04/19/25 20:43 Dose: 2 tab Documented By: Admin: 04/19/25 10:54 Dose: 2 tab Documented By: DION(2) Polyethylene Glycol (Polyethylene Glycol 3350 17 Gm Powd.Pack) 17 gm PO DAILY [facility] Last Admin: 04/26/25 09:18 Dose: Not Given Documented By: Admin: 04/25/25 08:52 Dose: 17 gm Documented By: Admin: 04/24/25 09:52 Dose: Not Given Documented By: Admin: 04/23/25 10:30 Dose: Not Given Documented By: Admin: 04/22/25 08:20 Dose: 17 gm Documented By: Admin: 04/21/25 16:36 Dose: 17 gm Documented By: LANE Sodium Chloride (Sodium Chloride 0.9% Flush) 10 ml IV PRN PRN PRN Reason: Flush Discontinued Medications Finasteride (Finasteride 5 Mg Tablet) 5 mg PO DAILY [facility] Hydromorphone HCl (Hydromorphone Hcl 0.5 Mg/0.5 Ml Syringe) 0.5 mg IV NOW ONE Stop: 04/18/25 13:21 Last Admin: 04/18/25 13:32 Dose: 0.5 mg Documented By: RLMercedes Hydromorphone HCl (Hydromorphone Hcl 0.5 Mg/0.5 Ml Syringe) 0.5 mg IV NOW ONE Stop: 04/18/25 15:43 Last Admin: 04/18/25 15:46 Dose: 0.5 mg Documented By: JONNY Hydromorphone HCl (Hydromorphone Hcl 0.5 Mg/0.5 Ml Syringe) 0.5 mg IV NOW ONE Stop: 04/18/25 19:20 Last Admin: 04/18/25 19:36 Dose: 0.5 mg Documented By: JONNY Acetaminophen (Ofirmev) 1,000 mg in 100 mls @ 400 mls/hr IV NOW ONE Stop: 04/18/25 08:48 Last Infusion: 04/18/25 09:09 Dose: Infused Documented By: DION(2) Admin: 04/18/25 08:45 Dose: 400 mls/hr Documented By: EB Lidocaine/Epinephrine (Lidocaine 1% W/Epi 10ml) 4 ml INJ INTRA-OP ONE Stop: 04/18/25 14:02 Last Admin: 04/18/25 14:52 Dose: 4 ml Documented By: JONNY Morphine Sulfate (Morphine 4 Mg/Ml Inj) 4 mg IV NOW ONE Stop: 04/18/25 06:52 Last Admin: 04/18/25 07:37 Dose: 4 mg Documented By: SGF Morphine Sulfate (Morphine 4 Mg/Ml Inj) 4 mg IV NOW ONE Stop: 04/18/25 11:09 Last Admin: 04/18/25 11:17 Dose: 4 mg Documented By: JONNY Non-Formulary Medication (Abiraterone ) 1 g PO DAILY [facility] Last Admin: 04/22/25 23:55 Dose: Not Given Documented By: Admin: 04/21/25 09:00 Dose: Not Given Documented By: Admin: 04/20/25 08:32 Dose: Not Given Documented By: JIE Abiraterone 250mg (Tabs) 1 each PO DAILY@0700 [facility] Last Admin: 04/25/25 06:10 Dose: 1 each Documented By: Admin: 04/24/25 05:46 Dose: 1 each Documented By: Admin: 04/23/25 10:36 Dose: 1 each Documented By: Admin: 04/22/25 11:37 Dose: 1 each Documented By: LANE Ondansetron HCl (Ondansetron 4 Mg/2 Ml Inj) 4 mg IV NOW ONE Stop: 04/18/25 11:09 Last Admin: 04/18/25 11:17 Dose: 4 mg Documented By: JONNY Sodium Chloride (Sodium Chloride 0.9% Flush) 10 ml IV BID [facility] Last Admin: 04/25/25 08:52 Dose: Not Given Documented By: Admin: 04/24/25 21:54 Dose: 10 ml Documented By: Admin: 04/24/25 10:22 Dose: 10 ml Documented By: Admin: 04/23/25 20:59 Dose: 10 ml Documented By: Admin: 04/23/25 10:36 Dose: 10 ml Documented By: Admin: 04/22/25 21:02 Dose: 10 ml Documented By: Admin: 04/22/25 09:00 Dose: 10 ml Documented By: LANE Vital Signs Vital signs: Vital Signs - 8 hr 04/18/25 11:30 04/18/25 11:31 04/18/25 11:31 Pulse Rate 79 78 Respiratory Rate Blood Pressure 142/98 H Pulse Oximetry 95 94 Oxygen Delivery Method 04/18/25 12:00 04/18/25 12:00 04/18/25 12:30 Pulse Rate 72 75 Respiratory Rate 18 20 Blood Pressure 160/79 H Pulse Oximetry 95 97 Oxygen Delivery Method Room Air 04/18/25 13:00 04/18/25 13:00 04/18/25 13:30 Pulse Rate 73 Respiratory Rate 13 Blood Pressure 171/82 H 170/92 H Pulse Oximetry 97 Oxygen Delivery Method 04/18/25 13:30 04/18/25 14:00 04/18/25 14:00 Pulse Rate 74 76 Respiratory Rate 16 17 Blood Pressure 171/99 H Pulse Oximetry 97 97 Oxygen Delivery Method 04/18/25 14:30 04/18/25 14:30 04/18/25 15:00 Pulse Rate 77 77 Respiratory Rate 14 12 Blood Pressure 193/86 H Pulse Oximetry 97 97 Oxygen Delivery Method 04/18/25 15:01 04/18/25 15:01 04/18/25 15:30 Pulse Rate 76 78 Respiratory Rate 11 L 16 Blood Pressure 165/85 H Pulse Oximetry 96 98 Oxygen Delivery Method 04/18/25 15:30 04/18/25 16:00 04/18/25 16:00 Pulse Rate 79 Respiratory Rate 12 Blood Pressure 173/83 H 173/84 H Pulse Oximetry 95 Oxygen Delivery Method 04/18/25 16:30 04/18/25 16:31 04/18/25 16:31 Pulse Rate 83 81 Respiratory Rate 14 14 Blood Pressure 167/91 H Pulse Oximetry 96 96 Oxygen Delivery Method 04/18/25 17:00 04/18/25 17:30 04/18/25 17:45 Pulse Rate 84 85 93 H Respiratory Rate 11 L 13 20 Blood Pressure Pulse Oximetry 96 96 96 Oxygen Delivery Method 04/18/25 17:45 04/18/25 18:00 04/18/25 18:30 Pulse Rate 88 85 Respiratory Rate 16 22 Blood Pressure 185/81 H Pulse Oximetry 96 95 Oxygen Delivery Method MDM - Extremity Injury (Lower) <Pastor Ramirez MD - Last Filed: 04/24/25 22:09> Lab Data 04/25/25 04:35 04/25/25 04:35 Labs: Lab Results 04/18/25 04/18/25 04/18/25 Range/Units 07:00 12:10 12:15 WBC 7.4 6.7 (4.5-11.0) X10^3/uL RBC 4.47 L 4.39 L (4.5-5.9) X10^6/uL Hgb 13.6 13.1 L (13.5-17.5) g/dL Hct 38.7 L 38.2 L (41-53) % MCV 86.5 87.0 (80-100) fL MCH 30.3 29.8 (26-34) PG MCHC 35.0 34.3 (30-36) % RDW 14.3 14.6 (11.6-14.8) % Plt Count 153 163 (150-400) X10^3/uL Neut % (Auto) 72.9 65.1 (50-75) % Lymph % (Auto) 14.8 L 20.6 L (25-40) % [place] % (Auto) 6.9 7.6 (3-14) % Eos % (Auto) 4.4 H 5.7 H (2-4) % Baso % (Auto) 1.0 1.0 (0-2) % Neut # (Auto) 5400 4400 (8506-8394) /uL Lymph # (Auto) 1100 1400 (6161-1548) /uL [place] # (Auto) 500 500 (0-900) /uL Eos # (Auto) 300 400 (0-450) /uL Baso # (Auto) 100 100 (0-100) /uL ESR 4 (0-15) MM/HR PT 14.5 H (9.4-12.5) SECONDS INR 1.3 (0.9-1.3) APTT 35 (25.1-36.5) SECONDS Sodium 137 135 L (137-145) mmol/L Potassium 3.8 4.0 (3.4-5.1) mmol/L Chloride 107 106 (98-107) mmol/L Carbon Dioxide 23 25 (22-32) mmol/L BUN 24 H 21 H (9-20) mg/dL Creatinine 0.79 0.80 (0.66-1.25) mg/dL Estimated GFR > 60 > 60 (>60) mL/min BUN/Creatinine Ratio 30.4 H 26.3 H (6-22) Glucose 100 H 93 (70-99) mg/dL Lactate 0.8 (0.7-2.1) mmol/L Calcium 9.3 9.2 (8.4-10.2) mg/dL Total Bilirubin 1.6 H 1.7 H (0.2-1.3) mg/dL AST 24 22 (17-59) IU/L ALT 16 16 (<50) IU/L Alkaline Phosphatase 63 62 (38-126) U/L C-Reactive Protein < 0.5 (<1.0) mg/dL Total Protein 6.3 6.0 L (6.3-8.2) g/dL Albumin 4.1 3.9 (3.5-5.0) g/dL Globulin 2.2 2.1 (1.7-4.1) g/dL Albumin/Globulin Ratio 1.9 1.9 (1.0-2.8) Lipase 35 (23-300) U/L Fluid Color Fluid Appearance Fluid RBC Fld Tot Nucleated Cell Fluid Neutrophils % Fluid Lymphocytes % Fluid Eosinophils % Fluid Basophils % Fluid Meso/Macro/[place] % Fluid Abnormal Cells Fluid Crystals (NONE) Body Fluid Clot Fluid Comment U Opiates 300ng/mL cut Positive H (Negative) Ur Oxycodone Screen Negative (Negative) Urine Methadone Screen Negative (Negative) Ur Barbiturates Screen Negative (Negative) U Tricyclic Antidepress Negative (Negative) Ur Phencyclidine Scrn Negative (Negative) Ur Amphetamines Screen Negative (Negative) U Methamphetamines Scrn Negative (Negative) Ur MDMA Scrn (Ecstasy) Negative (Negative) U Benzodiazepines Scrn Negative (Negative) Urine Cocaine Screen Negative (Negative) U Marijuana (THC) Screen Negative (Negative) Urine pH Normal (Normal) Urine Specific [place] Normal (Normal) Ethyl Alcohol < 10 (<10) mg/dL Ur Creatinine Normal (Normal) 04/18/ Range/Units 14:35 WBC (4.5-11.0) X10^3/uL RBC (4.5-5.9) X10^6/uL Hgb (13.5-17.5) g/dL Hct (41-53) % MCV (80-100) fL MCH (26-34) PG MCHC (30-36) % RDW (11.6-14.8) % Plt Count (150-400) X10^3/uL Neut % (Auto) (50-75) % Lymph % (Auto) (25-40) % [place] % (Auto) (3-14) % Eos % (Auto) (2-4) % Baso % (Auto) (0-2) % Neut # (Auto) (1080-0184) /uL Lymph # (Auto) (9812-4944) /uL [place] # (Auto) (0-900) /uL Eos # (Auto) (0-450) /uL Baso # (Auto) (0-100) /uL ESR (0-15) MM/HR PT (9.4-12.5) SECONDS INR (0.9-1.3) APTT (25.1-36.5) SECONDS Sodium (137-145) mmol/L Potassium (3.4-5.1) mmol/L Chloride (98-107) mmol/L Carbon Dioxide (22-32) mmol/L BUN (9-20) mg/dL Creatinine (0.66-1.25) mg/dL Estimated GFR (>60) mL/min BUN/Creatinine Ratio (6-22) Glucose (70-99) mg/dL Lactate (0.7-2.1) mmol/L Calcium (8.4-10.2) mg/dL Total Bilirubin (0.2-1.3) mg/dL AST (17-59) IU/L ALT (<50) IU/L Alkaline Phosphatase (38-126) U/L C-Reactive Protein (<1.0) mg/dL Total Protein (6.3-8.2) g/dL Albumin (3.5-5.0) g/dL Globulin (1.7-4.1) g/dL Albumin/Globulin Ratio (1.0-2.8) Lipase (23-300) U/L Fluid Color Cancelled Fluid Appearance Cancelled Fluid RBC Cancelled Fld Tot Nucleated Cell Cancelled Fluid Neutrophils % Cancelled Fluid Lymphocytes % Cancelled Fluid Eosinophils % Cancelled Fluid Basophils % Cancelled Fluid Meso/Macro/[place] % Cancelled Fluid Abnormal Cells Cancelled Fluid Crystals None present (NONE) Body Fluid Clot Cancelled Fluid Comment Cancelled U Opiates 300ng/mL cut (Negative) Ur Oxycodone Screen (Negative) Urine Methadone Screen (Negative) Ur Barbiturates Screen (Negative) U Tricyclic Antidepress (Negative) Ur Phencyclidine Scrn (Negative) Ur Amphetamines Screen (Negative) U Methamphetamines Scrn (Negative) Ur MDMA Scrn (Ecstasy) (Negative) U Benzodiazepines Scrn (Negative) Urine Cocaine Screen (Negative) U Marijuana (THC) Screen (Negative) Urine pH (Normal) Urine Specific [place] (Normal) Ethyl Alcohol (<10) mg/dL Ur Creatinine (Normal) MDM Narrative Medical decision making narrative: 06:45 I discussed the patient's case and knee symptoms with Dr. Gilliam, orthopedics. She advises that if there is no concern for septic joint we can use elevation, Brandan wraps and pain control and she will see the patient in follow-up this week. Based on exam I believe the patient has a non infectious effusion or possibly hemarthrosis. Labs and x-ray have been ordered. 07:00 Patient care transferred to Dr. Mcintosh at the change of shift with lab work and radiographs pending. <Woody Mcintosh MD - Last Filed: 04/18/25 16:37> Lab Data Labs: Lab Results 04/18/25 04/18/25 04/18/25 Range/Units 07:00 12:10 12:15 WBC 7.4 6.7 (4.5-11.0) X10^3/uL RBC 4.47 L 4.39 L (4.5-5.9) X10^6/uL Hgb 13.6 13.1 L (13.5-17.5) g/dL Hct 38.7 L 38.2 L (41-53) % MCV 86.5 87.0 (80-100) fL MCH 30.3 29.8 (26-34) PG MCHC 35.0 34.3 (30-36) % RDW 14.3 14.6 (11.6-14.8) % Plt Count 153 163 (150-400) X10^3/uL Neut % (Auto) 72.9 65.1 (50-75) % Lymph % (Auto) 14.8 L 20.6 L (25-40) % [place] % (Auto) 6.9 7.6 (3-14) % Eos % (Auto) 4.4 H 5.7 H (2-4) % Baso % (Auto) 1.0 1.0 (0-2) % Neut # (Auto) 5400 4400 (5694-8197) /uL Lymph # (Auto) 1100 1400 (5861-7322) /uL [place] # (Auto) 500 500 (0-900) /uL Eos # (Auto) 300 400 (0-450) /uL Baso # (Auto) 100 100 (0-100) /uL ESR 4 (0-15) MM/HR PT 14.5 H (9.4-12.5) SECONDS INR 1.3 (0.9-1.3) APTT 35 (25.1-36.5) SECONDS Sodium 137 135 L (137-145) mmol/L Potassium 3.8 4.0 (3.4-5.1) mmol/L Chloride 107 106 (98-107) mmol/L Carbon Dioxide 23 25 (22-32) mmol/L BUN 24 H 21 H (9-20) mg/dL Creatinine 0.79 0.80 (0.66-1.25) mg/dL Estimated GFR > 60 > 60 (>60) mL/min BUN/Creatinine Ratio 30.4 H 26.3 H (6-22) Glucose 100 H 93 (70-99) mg/dL Lactate 0.8 (0.7-2.1) mmol/L Calcium 9.3 9.2 (8.4-10.2) mg/dL Total Bilirubin 1.6 H 1.7 H (0.2-1.3) mg/dL AST 24 22 (17-59) IU/L ALT 16 16 (<50) IU/L Alkaline Phosphatase 63 62 (38-126) U/L C-Reactive Protein < 0.5 (<1.0) mg/dL Total Protein 6.3 6.0 L (6.3-8.2) g/dL Albumin 4.1 3.9 (3.5-5.0) g/dL Globulin 2.2 2.1 (1.7-4.1) g/dL Albumin/Globulin Ratio 1.9 1.9 (1.0-2.8) Lipase 35 (23-300) U/L Fluid Color Fluid Appearance Fluid RBC Fld Tot Nucleated Cell Fluid Neutrophils % Fluid Lymphocytes % Fluid Eosinophils % Fluid Basophils % Fluid [place]/Macro/[place] % Fluid Abnormal Cells Fluid Crystals (NONE) Body Fluid Clot Fluid Comment U Opiates 300ng/mL cut Positive H (Negative) Ur Oxycodone Screen Negative (Negative) Urine Methadone Screen Negative (Negative) Ur Barbiturates Screen Negative (Negative) U Tricyclic Antidepress Negative (Negative) Ur Phencyclidine Scrn Negative (Negative) Ur Amphetamines Screen Negative (Negative) U Methamphetamines Scrn Negative (Negative) Ur MDMA Scrn (Ecstasy) Negative (Negative) U Benzodiazepines Scrn Negative (Negative) Urine Cocaine Screen Negative (Negative) U Marijuana (THC) Screen Negative (Negative) Urine pH Normal (Normal) Urine Specific [place] Normal (Normal) Ethyl Alcohol < 10 (<10) mg/dL Ur Creatinine Normal (Normal) 11/18/25 Range/Units 14:35 WBC (4.5-11.0) X10^3/uL RBC (4.5-5.9) X10^6/uL Hgb (13.5-17.5) g/dL Hct (41-53) % MCV (80-100) fL MCH (26-34) PG MCHC (30-36) % RDW (11.6-14.8) % Plt Count (150-400) X10^3/uL Neut % (Auto) (50-75) % Lymph % (Auto) (25-40) % [place] % (Auto) (3-14) % Eos % (Auto) (2-4) % Baso % (Auto) (0-2) % Neut # (Auto) (1246-2348) /uL Lymph # (Auto) (0674-4809) /uL [place] # (Auto) (0-900) /uL Eos # (Auto) (0-450) /uL Baso # (Auto) (0-100) /uL ESR (0-15) MM/HR PT (9.4-12.5) SECONDS INR (0.9-1.3) APTT (25.1-36.5) SECONDS Sodium (137-145) mmol/L Potassium (3.4-5.1) mmol/L Chloride (98-107) mmol/L Carbon Dioxide (22-32) mmol/L BUN (9-20) mg/dL Creatinine (0.66-1.25) mg/dL Estimated GFR (>60) mL/min BUN/Creatinine Ratio (6-22) Glucose (70-99) mg/dL Lactate (0.7-2.1) mmol/L Calcium (8.4-10.2) mg/dL Total Bilirubin (0.2-1.3) mg/dL AST (17-59) IU/L ALT (<50) IU/L Alkaline Phosphatase (38-126) U/L C-Reactive Protein (<1.0) mg/dL Total Protein (6.3-8.2) g/dL Albumin (3.5-5.0) g/dL Globulin (1.7-4.1) g/dL Albumin/Globulin Ratio (1.0-2.8) Lipase (23-300) U/L Fluid Color Cancelled Fluid Appearance Cancelled Fluid RBC Cancelled Fld Tot Nucleated Cell Cancelled Fluid Neutrophils % Cancelled Fluid Lymphocytes % Cancelled Fluid Eosinophils % Cancelled Fluid Basophils % Cancelled Fluid Meso/Macro/[place] % Cancelled Fluid Abnormal Cells Cancelled Fluid Crystals None present (NONE) Body Fluid Clot Cancelled Fluid Comment Cancelled U Opiates 300ng/mL cut (Negative) Ur Oxycodone Screen (Negative) Urine Methadone Screen (Negative) Ur Barbiturates Screen (Negative) U Tricyclic Antidepress (Negative) Ur Phencyclidine Scrn (Negative) Ur Amphetamines Screen (Negative) U Methamphetamines Scrn (Negative) Ur MDMA Scrn (Ecstasy) (Negative) U Benzodiazepines Scrn (Negative) Urine Cocaine Screen (Negative) U Marijuana (THC) Screen (Negative) Urine pH (Normal) Urine Specific [place] (Normal) Ethyl Alcohol (<10) mg/dL Ur Creatinine (Normal) MDM Narrative Medical decision making narrative: 06:45 I discussed the patient's case and knee symptoms with Dr. Gilliam, orthopedics. She advises that if there is no concern for septic joint we can use elevation, Brandan wraps and pain control and she will see the patient in follow-up this week. Based on exam I believe the patient has a non infectious effusion or possibly hemarthrosis. Labs and x-ray have been ordered. 07:00 Patient care transferred to Dr. Mcintosh at the change of shift with lab work and radiographs pending. Lab work reassuring, patient with no redness, no lab work indication of septic joint. However between approximately 7:00 a.m. and 11:00 a.m. patient with significant worsening and enlargement of joint effusion. At that time there was a concern for an active bleed. However given that CT was down and patient was stable decision was made to Brandan wrap the knee and observe. Orthopedics was consulted at outside facility who recommended arthrocentesis. At the time of this addendum at 4:35 p.m. arthrocentesis results pending. Patient much more comfortable. Swelling reduced. Arthrocentesis with approximately 10 mL of marija blood. Patient unable to walk secondary to pain at this time and therefore is also pending social work evaluation for possible help at home. Signed out to Dr. Scott pending these results <Nara Scott, DO - Last Filed: 04/26/25 17:06> Lab Data Labs: Lab Results 04/18/25 04/18/25 04/18/25 Range/Units 07:00 12:10 12:15 WBC 7.4 6.7 (4.5-11.0) X10^3/uL RBC 4.47 L 4.39 L (4.5-5.9) X10^6/uL Hgb 13.6 13.1 L (13.5-17.5) g/dL Hct 38.7 L 38.2 L (41-53) % MCV 86.5 87.0 (80-100) fL MCH 30.3 29.8 (26-34) PG MCHC 35.0 34.3 (30-36) % RDW 14.3 14.6 (11.6-14.8) % Plt Count 153 163 (150-400) X10^3/uL Neut % (Auto) 72.9 65.1 (50-75) % Lymph % (Auto) 14.8 L 20.6 L (25-40) % [place] % (Auto) 6.9 7.6 (3-14) % Eos % (Auto) 4.4 H 5.7 H (2-4) % Baso % (Auto) 1.0 1.0 (0-2) % Neut # (Auto) 5400 4400 (3872-6527) /uL Lymph # (Auto) 1100 1400 (1848-2181) /uL [place] # (Auto) 500 500 (0-900) /uL Eos # (Auto) 300 400 (0-450) /uL Baso # (Auto) 100 100 (0-100) /uL ESR 4 (0-15) MM/HR PT 14.5 H (9.4-12.5) SECONDS INR 1.3 (0.9-1.3) APTT 35 (25.1-36.5) SECONDS Sodium 137 135 L (137-145) mmol/L Potassium 3.8 4.0 (3.4-5.1) mmol/L Chloride 107 106 (98-107) mmol/L Carbon Dioxide 23 25 (22-32) mmol/L BUN 24 H 21 H (9-20) mg/dL Creatinine 0.79 0.80 (0.66-1.25) mg/dL Estimated GFR > 60 > 60 (>60) mL/min BUN/Creatinine Ratio 30.4 H 26.3 H (6-22) Glucose 100 H 93 (70-99) mg/dL Lactate 0.8 (0.7-2.1) mmol/L Calcium 9.3 9.2 (8.4-10.2) mg/dL Total Bilirubin 1.6 H 1.7 H (0.2-1.3) mg/dL AST 24 22 (17-59) IU/L ALT 16 16 (<50) IU/L Alkaline Phosphatase 63 62 (38-126) U/L C-Reactive Protein < 0.5 (<1.0) mg/dL Total Protein 6.3 6.0 L (6.3-8.2) g/dL Albumin 4.1 3.9 (3.5-5.0) g/dL Globulin 2.2 2.1 (1.7-4.1) g/dL Albumin/Globulin Ratio 1.9 1.9 (1.0-2.8) Lipase 35 (23-300) U/L Fluid Color Fluid Appearance Fluid RBC Fld Tot Nucleated Cell Fluid Neutrophils % Fluid Lymphocytes % Fluid Eosinophils % Fluid Basophils % Fluid [place]/Macro/[place] % Fluid Abnormal Cells Fluid Crystals (NONE) Body Fluid Clot Fluid Comment U Opiates 300ng/mL cut Positive H (Negative) Ur Oxycodone Screen Negative (Negative) Urine Methadone Screen Negative (Negative) Ur Barbiturates Screen Negative (Negative) U Tricyclic Antidepress Negative (Negative) Ur Phencyclidine Scrn Negative (Negative) Ur Amphetamines Screen Negative (Negative) U Methamphetamines Scrn Negative (Negative) Ur MDMA Scrn (Ecstasy) Negative (Negative) U Benzodiazepines Scrn Negative (Negative) Urine Cocaine Screen Negative (Negative) U Marijuana (THC) Screen Negative (Negative) Urine pH Normal (Normal) Urine Specific [place] Normal (Normal) Ethyl Alcohol < 10 (<10) mg/dL Ur Creatinine Normal (Normal) 11/18/25 Range/Units 14:35 WBC (4.5-11.0) X10^3/uL RBC (4.5-5.9) X10^6/uL Hgb (13.5-17.5) g/dL Hct (41-53) % MCV (80-100) fL MCH (26-34) PG MCHC (30-36) % RDW (11.6-14.8) % Plt Count (150-400) X10^3/uL Neut % (Auto) (50-75) % Lymph % (Auto) (25-40) % [place] % (Auto) (3-14) % Eos % (Auto) (2-4) % Baso % (Auto) (0-2) % Neut # (Auto) (9225-5848) /uL Lymph # (Auto) (0385-4810) /uL [place] # (Auto) (0-900) /uL Eos # (Auto) (0-450) /uL Baso # (Auto) (0-100) /uL ESR (0-15) MM/HR PT (9.4-12.5) SECONDS INR (0.9-1.3) APTT (25.1-36.5) SECONDS Sodium (137-145) mmol/L Potassium (3.4-5.1) mmol/L Chloride (98-107) mmol/L Carbon Dioxide (22-32) mmol/L BUN (9-20) mg/dL Creatinine (0.66-1.25) mg/dL Estimated GFR (>60) mL/min BUN/Creatinine Ratio (6-22) Glucose (70-99) mg/dL Lactate (0.7-2.1) mmol/L Calcium (8.4-10.2) mg/dL Total Bilirubin (0.2-1.3) mg/dL AST (17-59) IU/L ALT (<50) IU/L Alkaline Phosphatase (38-126) U/L C-Reactive Protein (<1.0) mg/dL Total Protein (6.3-8.2) g/dL Albumin (3.5-5.0) g/dL Globulin (1.7-4.1) g/dL Albumin/Globulin Ratio (1.0-2.8) Lipase (23-300) U/L Fluid Color Cancelled Fluid Appearance Cancelled Fluid RBC Cancelled Fld Tot Nucleated Cell Cancelled Fluid Neutrophils % Cancelled Fluid Lymphocytes % Cancelled Fluid Eosinophils % Cancelled Fluid Basophils % Cancelled Fluid [place]/Macro/[place] % Cancelled Fluid Abnormal Cells Cancelled Fluid Crystals None present (NONE) Body Fluid Clot Cancelled Fluid Comment Cancelled U Opiates 300ng/mL cut (Negative) Ur Oxycodone Screen (Negative) Urine Methadone Screen (Negative) Ur Barbiturates Screen (Negative) U Tricyclic Antidepress (Negative) Ur Phencyclidine Scrn (Negative) Ur Amphetamines Screen (Negative) U Methamphetamines Scrn (Negative) Ur MDMA Scrn (Ecstasy) (Negative) U Benzodiazepines Scrn (Negative) Urine Cocaine Screen (Negative) U Marijuana (THC) Screen (Negative) Urine pH (Normal) Urine Specific [place] (Normal) Ethyl Alcohol (<10) mg/dL Ur Creatinine (Normal) MDM Narrative Medical decision making narrative: 06:45 I discussed the patient's case and knee symptoms with Dr. Gilliam, orthopedics. She advises that if there is no concern for septic joint we can use elevation, Brandan wraps and pain control and she will see the patient in follow-up this week. Based on exam I believe the patient has a non infectious effusion or possibly hemarthrosis. Labs and x-ray have been ordered. 07:00 Patient care transferred to Dr. Mcintosh at the change of shift with lab work and radiographs pending. Lab work reassuring, patient with no redness, no lab work indication of septic joint. However between approximately 7:00 a.m. and 11:00 a.m. patient with significant worsening and enlargement of joint effusion. At that time there was a concern for an active bleed. However given that CT was down and patient was stable decision was made to Brandan wrap the knee and observe. Orthopedics was consulted at outside facility who recommended arthrocentesis. At the time of this addendum at 4:35 p.m. arthrocentesis results pending. Patient much more comfortable. Swelling reduced. Arthrocentesis with approximately 10 mL of marija blood. Patient unable to walk secondary to pain at this time and therefore is also pending social work evaluation for possible help at home. Signed out to Dr. Scott pending these results 04/18/25 Dr. Scott: Patient tap of his knee results were pending plan of callback orthopedic surgery at outside facility. CT is down and has not been available. Report was marija blood on arthrocentesis unfortunately labs clotted and they were unable to obtain a cell count, gram stain is negative for organisms occasional WBC. Cultures are pending, no fluid crystals present. X-ray showed a [id number] joint effusion vascular calcifications nearly complete patellofemoral joint space narrowing with lateral patellar tilt. Jhuq-dh-klnutdea joint space narrowing also seen in the medial patellofemoral compartments. Patient's labs show normal white count, ESR of 4, hemoglobin was 13.6 and repeated at 13.1 platelets are a 163. Chemistries are overall appropriate bilirubin has a little bit elevated C-reactive protein is less than 0.5. AST ALT and lipase are normal. INR 1.3, PTT is 35. Patient has a seen and evaluated by myself patient's left knee has a mild tenderness he was able to stand but that has very uncomfortable moving his knee. Does not appear to be increasingly swollen had Brandan wrap placed. His knee was evaluated there was no ecchymosis. Has a Band-Aid over where he had his tap. Neurovascularly intact without any other swelling or changes has not had any other atypical bruising or bleeding he denies any recent trauma. Spoke with on-call orthopedic surgery Dr. Mcduffie at [facility]. Dr. Mcintosh had consulted earlier in the day. Called back with joint aspiration results cell count was not able to be performed but did not appear to be frankly bloody and g stain showed a few white cells but otherwise negative with culture pending. I suspect this patient has more of a hemarthrosis, Dr. Mcduffie agrees. Recommends compression, decreasing his DOAC as able. Spoke with the patient he is agreeable to decreasing his DOAC at this time. Does not feel that he can discharge home safely he lives alone in his having significant difficulty with ambulation. No other medical cause for admission at this time we will plan for physical therapy eval in the am. CAP COVERER did meet with patient. Discharge Plan Departure Patient Disposition: Admitted As Inpatient Clinical Impression: Hemarthrosis involving knee joint Admit Date/Time: 04/19/25 16:22 Admit Provider: Ronal Calvin
--- NOTE | 2025-04-18 06:46 | DI.RAD.S_ITS ---
PROCEDURE: XR KNEE RT 3V INDICATIONS: Pain and swelling TECHNIQUE: 3 views of the knee were acquired. COMPARISON: None. FINDINGS AND IMPRESSION: Nearly complete patellofemoral joint space narrowing with lateral patellar tilt. Srie-nr-vxdqcfxc joint space narrowing also seen in the medial and patellofemoral compartments. Moderate to large joint effusion. Vascular calcifications. If there is high concern for further derangement, consider MRI evaluation. Dictated by: Guerrero Garcia M.D. on 04/18/2025 at 7:59 Approved by: Guerrero Garcia M.D. on 04/18/2025 at 7:59
[2025-04-18 07:09] LABS: Add Manual Diff / Slide Review NO; Hematocrit 38.7 % (41-53); Hemoglobin 13.6 g/dL (13.5-17.5); Lymphocytes Absolute Auto 1100 /uL (1100-4500); Mean Corpuscular HGB Conc 35.0 % (30-36); Mean Corpuscular Hemoglobin 30.3 PG (26-34); Mean Corpuscular Volume 86.5 fL (80-100); Platelet Count 153 X10^3/uL (150-400)
[2025-04-18 07:24] LABS: Alanine Aminotransferase 16 IU/L (<50); Albumin 4.1 g/dL (3.5-5.0); Albumin Globulin Ratio 1.9 (1.0-2.8); Alkaline Phosphatase 63 U/L (38-126); Blood Urea Nitrogen 24 mg/dL (9-20); Calcium 9.3 mg/dL (8.4-10.2); Carbon Dioxide 23 mmol/L (22-32); Chloride 107 mmol/L (98-107); Estimated Glomerular Filt Rate > 60 mL/min (>60); Globulin 2.2 g/dL (1.7-4.1); Glucose 100 mg/dL (70-99); HEMOLYSIS < 15 (0-50); Potassium 3.8 mmol/L (3.4-5.1); Sodium 137 mmol/L (137-145); Total Protein 6.3 g/dL (6.3-8.2)
[2025-04-18] MEDS: MORPHINE 4 MG/ML INJ IV ×2 (07:37→11:17)
[2025-04-18] MEDS: ACETAMINOPHEN IV 1,000 MG/100 ML VIAL 400 MG IV (08:45)
[2025-04-18] MEDS: ONDANSETRON 4 MG/2 ML INJ IV (11:17)
--- NOTE | 2025-04-18 11:33 | EKG_ITS ---
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
[2025-04-18 12:27] LABS: Add Manual Diff / Slide Review NO; Hematocrit 38.2 % (41-53); Hemoglobin 13.1 g/dL (13.5-17.5); Lymphocytes Absolute Auto 1400 /uL (1100-4500); Mean Corpuscular HGB Conc 34.3 % (30-36); Mean Corpuscular Hemoglobin 29.8 PG (26-34); Mean Corpuscular Volume 87.0 fL (80-100); Platelet Count 163 X10^3/uL (150-400)
[2025-04-18 12:30] LABS: Ur Specific Gravity Normal (Normal)
[2025-04-18 12:31] LABS: Urine MDMA Negative (Negative); Urine Methamphetamines Negative (Negative); Urine Tetrahydrocannabinol Negative (Negative); Urine Tricyclic Antidepressant Negative (Negative)
[2025-04-18 12:33] LABS: INR 1.3 (0.9-1.3); Prothrombin Time 14.5 SECONDS (9.4-12.5)
[2025-04-18 12:34] LABS: UR Morphine/Opiate cutoff 300 Positive (Negative)
[2025-04-18 12:36] LABS: PTT Partial Thromboplastin Tim 35 SECONDS (25.1-36.5)
[2025-04-18 12:43] LABS: Alanine Aminotransferase 16 IU/L (<50); Albumin 3.9 g/dL (3.5-5.0); Albumin Globulin Ratio 1.9 (1.0-2.8); Alkaline Phosphatase 62 U/L (38-126); Blood Urea Nitrogen 21 mg/dL (9-20); Calcium 9.2 mg/dL (8.4-10.2); Carbon Dioxide 25 mmol/L (22-32); Chloride 106 mmol/L (98-107); Estimated Glomerular Filt Rate > 60 mL/min (>60); Ethanol (ETOH) < 10 mg/dL (<10); Globulin 2.1 g/dL (1.7-4.1); Glucose 93 mg/dL (70-99); HEMOLYSIS < 15 (0-50); Lipase 35 U/L (23-300); Potassium 4.0 mmol/L (3.4-5.1); Sodium 135 mmol/L (137-145); Total Protein 6.0 g/dL (6.3-8.2)
[2025-04-18 12:44] LABS: Lactate (Lactic Acid) 0.8 mmol/L (0.7-2.1)
[2025-04-18] MEDS: LIDOCAINE 1% W/EPI 10ML 4 ML INJ (14:52)
[2025-04-18 16:08] LABS: Crystals Body Fluid - IN-HOUSE NONE Present
--- NOTE | 2025-04-18 18:37 | CM.SWNOTE ---
ED AGRICULTURAL CONSULTANT Note Patient is 79 y/o male who presents to the ED via EMS this morning due to concern for new onset knee pain and swelling and inability to ambulate. Patient endorses that symptoms started late last night. Patient's PCP is [facility], patient has [place]. Patient sees Dr. Hobbs at [facility]. Patient has hx of Prostate Cancer, Hypertension, and hx of heart valve repair. Due to knee swelling there was concern that patient may need to be transferred but swelling has been resolved, patient continues to present with knee pain, difficulty ambulating and concern for managing ADLs at home. AGRICULTURAL CONSULTANT enters room to meet with patient, patient presents as A/Ox4. Patient endorses he resides home alone in [place] in an apartment and states that there are 17 steps to get into the apartment. Patient endorses at baseline prior to last night he was independent with all ADLs, drives at baseline, denies any hx of barriers to ambulation and does not require any DME. Patient states he has supports from local religion members and states his son resides in [place]. Patient endorses that he informed his son that he was in the hospital and states that his son is unable to come to visit at this time. ED provider orders PT, PT to evaluate patient tomorrow morning. AGRICULTURAL CONSULTANT discusses Home Health and patient indicates agreement to this plan, patient denies preference for HH agency. Pending disposition, patient to board in ED awaiting PT eval and recommendations. ED AGRICULTURAL CONSULTANT to f/u with plan of care tomorrow. TEODORO Christian Discharge Planning/Care Management CM Discharge Assessment Start: 04/18/25 18:32 Freq: Status: Active Protocol: Document 04/18/25 18:33 LN (Rec: 04/18/25 18:37 LN [id number]) Discharge Planning Assessment Assigned Discharge TEODORO Nam Staff Air Tactical Officer Provider [facility] Insurance [place] Advance Directives? No Advance Directives No on File History Provided By Patient,Medical Record Has Patient been No admitted in last 30 days? Prior Living Apartment/Condo Arrangements Household Members none Type of Drives own vehicle transporation used prior to admit Independent with ADL Yes: at baseline 's Is patient alert and Yes oriented? Needs Assistance Bathing,Meal Prep,Toileting,Home Chores / Shopping With Comment Due to ambulation concerns at this time there is concern for patient managing ADLs at home. Patient/Family Home with Home Health Preference SNF/HH Preference Home with Home Health- no agency preference
[2025-04-19] VITALS (39 sets, daily range): BP systolic 117–179; BP diastolic 66–103; PULSE 72–105; RESP 14–22; TEMP 36.1; O2SAT 91–98; BMI 31.3
--- NOTE | 2025-04-19 11:03 | PT-IP ANOTE ---
Pt declined Physical Therapy evaluation at this time due to having too much pain in his right knee (01/08). Coordinated with his nurse to get pain medication while therapist discussed baseline information with pt. Will check back for evalaution when his pain is better controlled. Pt does not feel he will be able to return home with his right knee pain due to having 17 steps to get up to get to his apt and he lives alone.
--- NOTE | 2025-04-19 11:55 | PC.NURSE ---
Pt was given full bed change and melissa care after incontinence episode. Pt's legs and knees were floated with pillows. Pt's R knee was unwrapped and ice pack was provided. Pt's O2 sat currently 98% on 2L NC. O2 was turned off at this time for RA trial. Pt endorses pain level is tolerable post medical coordinator pesticide use (see JUL). Pt was contacted for repeat attempt at evaluation. Pt's primary nurse notified.
--- NOTE | 2025-04-19 14:00 | PT.IIE ---
Physical Therapy Inpatient Evaluation M1 PT IP Prior Functional Status Start: 04/19/25 11:05 Freq: Status: Active Protocol: Document 04/19/25 11:06 DLM (Rec: 04/19/25 11:09 DLM Desktop) Medical Review Prior Functional Status Medical History Yes Reviewed Diet/Fluid Regular Consistency Communication WFL Mobility and Gait Independent without device Activities of Daily Independent. He drives Living and IADL's Prior Functional He has been going to MD visits and medical appointments Level (Other details related to his prostate cancer. ) He has support of local [employer] and [employer]. His DIL works. His Son lives in [place]. He can not think of anywhere else he can stay at discharge (no family/friends) that would have a more accessible home. Social History Household Members none Living Arrangements Apartment/Condo Number of Floors ( One Floor Floors) Number of Stairs To 17 steps to enter with bilateral rails, inside stairs Enter/Railing? 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 [employer] Additional Social the 4WW belonged to his History Comment M2 PT-IP Current Condition Start: 04/19/25 11:05 Freq: Status: Active Protocol: Document 04/19/25 14:00 DLM (Rec: 04/19/25 14:24 DLM Desktop) Physical Therapy Current Condition Current Condition Evaluation Date 04/19/25 Treatment Diagnosis right knee injury and pain, impaired gait and mobility Onset Date 04/18/25 M3 PT-IP Subjective Start: 04/19/25 11:05 Freq: Status: Active Protocol: Document 04/19/25 14:00 DLM (Rec: 04/19/25 14:24 DLM Desktop) Subjective Physical Therapy Visit Type Type Initial Evaluation Visit Start Time 13:05 Visit Stop Time 14:00 Notes 55 min Number of FURNITURE CLEANER Visits 0 Physical Therapy Visit Comments Patient Comments He does not feel safe to go home. He is agreeable to going to rehab. Patient Goals Get well and return home. Go visit family for Thanksgiving. Therapy Pain Assessment Pain When Pain Assessed After Treatment Pain Present Pain Present Pain Reported Location Right Knee Intensity 4 Scale Used Numeric (0 - 10) Description Aching,Stabbing,Tender Pain Behaviors Facial Grimacing,Guarding,Wincing Pain Management Apply Cold,Elevation,Modification of Treatment,Re- Techniques positioning,Timing of Activity with Medications M4 PT-IP Mobility and Gait Start: 04/19/25 11:05 Freq: Status: Active Protocol: Document 04/19/25 14:00 DLM (Rec: 04/19/25 14:24 DLM Desktop) PT-Bed Mobility Assessment Supine to Sit Supine to Sit Minimal Assistance,Head of Bed Elevated,Bedrails Sit to Supine Sit to Supine Moderate Assistance,Bedrails Scooting Scooting to Edge of Contact Guard Assistance Bed PT-Transfer Assessment Sit to and From Stand Sit to and from Minimal Assistance,Moderate Assistance,Use of Upper Stand Extremities Equipment Transfer Assistive Gait Belt,Front Wheeled Walker Device Transfers Transfer Destination Chair Transfer Technique Stand Pivot Transfer Ability Level of Assist Minimal Assistance,Use of Upper Extremities Comments Mobility Comments Pt able to stand with FWW but holding right foot off floor. He reports increased knee pain with attempts to set foot on floor. In sitting he initially could not set foot on floor but he gradually progressed to tolerating his heel on floor when sitting edge of stretcher and later foot flat on floor seated in chair. Pt able to progress to transfer ED stretcher to chair and back this visit. He holds right foot off floor and scoots right foot on floor. He is not able to hop on left LE at this time. He needs assist to manage the FWW during the transfer. Gait Assessment Comments Gait Comments He is not able to progress to gait at this time Stair Climbing Assessment Comments Stair Climbing unable to assess stairs Comments PT-Balance Assessment Sitting Balance and Reactions Static Sitting Normal Balance Ability Dynamic Sitting Normal Balance Ability Standing Balance and Reactions Static Standing Fair Balance Ability Dynamic Standing Fair Balance Ability Device Used FWW M5 PT-IP Objective Assessments Start: 04/19/25 11:05 Freq: Status: Active Protocol: Document 04/19/25 14:00 DLM (Rec: 04/19/25 14:24 DLM Desktop) Orientation Orientation/Cognition Level of Alertness Alert Orientation Name,Age,Birthday,Month,Date,Year,Day of Week,Place, Situation Safety Awareness Understands Safety Issues Memory Description No Deficits Noted Comments Mild word finding difficulty intermittently during this visit. Gross Range of Motion Upper Extremity ROM Assessment Bilaterally Impaired Impairments shoulder flexion end range stiffness and pain, limited to about 100 degrees of flexion Lower Extremity ROM Assessment Right Impaired Impairments poor tolerance moving right knee, holds knee in about 30 degrees of flexion in supine, able to flex about 70 degrees sitting in chair edema and pain limit right knee ROM Strength Upper Extremity Strength Assessment Within Functional Limits Lower Extremity Strength Assessment Right Impaired Hip needs assist to move right LE in bed and sitting Knee very painful to actively move knee, pain with quad isometric Ankle moving actively with mild knee pain Coordination Assessment Gross Coordination Gross Coordination WNL Assessment Coordination mild increased tremors with a lot of effort during Comments mobility Sensation Assessment Sensation Gross Sensation Right UE Impaired,Left UE Impaired,Right LE Impaired, Left LE Impaired Sensation Numbness,Tingling Description Comments Sensation Comments 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 Muscle Tone Muscle Tone WNL Yes M6 PT-IP Treatment Start: 04/19/25 11:05 Freq: Status: Active Protocol: Document 04/19/25 14:00 DLM (Rec: 04/19/25 14:24 DLM Desktop) Physical Therapy Treatment Exercises Exercises Ankle Pumps,Quad Sets Education Education Provided Safety Other Treatments Other Treatment educated pt in keeping knee in as much extension as Performed tolerated in supine to manage knee ROM M7 PT-IP Assessment and Plan Start: 04/19/25 11:05 Freq: Status: Active Protocol: Document 04/19/25 14:00 DLM (Rec: 04/19/25 14:24 DLM Desktop) PT Summary Assessment and Plan Potential Rehabilitation Good Potential Status of Condition Evolving at Evaluation Summary Impairments Pain,ROM,Strength,Balance,Coordination,Sensation,Bed Mobility,Transfers,Gait,Activity Tolerance Assessment Summary Eulalio is alert and resting on a stretcher in E.D. He reports sudden onset of right knee pain and swelling at home without trauma. Pt is on Eliquis. Arthrocentesis showed 10 ml blood from his right knee. Pt is fearful of moving his right knee due to his high level of pain. He gradually progressed to standing with the FWW and transfers to/from a chair with FWW and one person assist. He is not able to use right LE functionally in standing and holds right foot up off the floor. He is not able to hop on left LE with the FWW to progress to gait. He is independent at baseline without a device. He has to be able to go up 17 steps to get back into his apt. He has been undergoing treatment for his prostate cancer before this ED visit. He is not safe to discharge home alone at this time. Recommend SNF rehab at discharge to assist with his functional recovery including gait and stairs as well as right knee pain management. Goals Bed Mobility Goal Independent Transfer Goal Independent,Front Wheeled Walker Gait Goal Independent,Front Wheel Walker Gait Distance 150 feet Other Goals Up/down 17 steps with bilateral rails and CG assist. Days to Meet Goals 15 Frequency of Treatment Frequency Of Once a Day Treatment Treatment Plan Physical Therapy Bed Mobility Training,Transfer Training,Gait Training, Treatment Plan Therapeutic Exercise,Balance Retraining,Discharge Planning,Hot or Cold Pack,Neuromuscular Re-ed,Manual Therapy Other pain management right knee Recommendations and Next Treatment Focus Weight Bearing Status Weight Bearing Weight Bear as Tolerated Status Allowed Weight right knee Bearing Amount ( enter % or #) (%) Recommendations To Nursing Amount of Assist 1 Person Assist Needed Discharge Recommendations PT Discharge SNF Rehab Recommendations Other Discharge not safe to return home alone Recommendations Equipment Needed for anticipate FWW needed but defer to SNF Home Before Discharge Transportation Needs Wheelchair/Cabulance at Discharge - PT assist 1
--- NOTE | 2025-04-19 16:52 | P.HP_ITS ---
History of Present Illness History of Present Illness Date Patient Seen: 04/19/25 Chief complaint: right knee pain Narrative: Chief complaint: Hemarthrosis causing right knee pain History of present illness: 79-year-old male who lives alone evaluated in the emergency department for severe knee pain with findings of knee arthrosis. Below is the emergency room narrative. Apparently patient was attempted to be placed or find a disposition for multiple emergency room shift but were unable to accomplish such. Request for the hospitalist service to place on the floor due to a very prolonged emergency room stay until a long-term facility disposition could be arranged for the patient. 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 Gilliam, orthopedics. She advises that if there is no concern for septic joint we can use elevation, Brandan wraps and pain control and she will see the patient in follow-up this week. Based on exam I believe the patient has a non infectious effusion or possibly hemarthrosis. Labs and x-ray have been ordered. 07:00 Patient care transferred to Dr. Mcintosh at the change of shift with lab work and radiographs pending. Lab work reassuring, patient with no redness, no lab work indication of septic joint. However between approximately 7:00 a.m. and 11:00 a.m. patient with significant worsening and enlargement of joint effusion. At that time there was a concern for an active bleed. However given that CT was down and patient was stable decision was made to Brandan wrap the knee and observe. Orthopedics was consulted at outside facility who recommended arthrocentesis. At the time of this addendum at 4:35 p.m. arthrocentesis results pending. Patient much more comfortable. Swelling reduced. Arthrocentesis with approximately 10 mL of marija blood. Patient unable to walk secondary to pain at this time and therefore is also pending social work evaluation for possible help at home. Signed out to Dr. Scott pending these results 04/18/25 Dr. Scott: Patient tap of his knee results were pending plan of callback orthopedic surgery at outside facility. CT is down and has not been available. Report was marija blood on arthrocentesis unfortunately labs clotted and they were unable to obtain a cell count, gram stain is negative for organisms occasional WBC. Cultures are pending, no fluid crystals present. X-ray showed a euoirbhf-cx-rztrb joint effusion vascular calcifications nearly complete patellofemoral joint space narrowing with lateral patellar tilt. Iqgb-ed-cpjzujej joint space narrowing also seen in the medial patellofemoral compartments. Patient's labs show normal white count, ESR of 4, hemoglobin was 13.6 and repeated at 13.1 platelets are a 163. Chemistries are overall appropriate bilirubin has a little bit elevated C-reactive protein is less than 0.5. AST ALT and lipase are normal. INR 1.3, PTT is 35. Patient has a seen and evaluated by myself patient's left knee has a mild tenderness he was able to stand but that has very uncomfortable moving his knee. Does not appear to be increasingly swollen had Brandan wrap placed. His knee was evaluated there was no ecchymosis. Has a Band-Aid over where he had his tap. Neurovascularly intact without any other swelling or changes has not had any other atypical bruising or bleeding he denies any recent trauma. Spoke with on-call orthopedic surgery Dr. Mcduffie at [facility]. Dr. Mcintosh had consulted earlier in the day. Called back with joint aspiration results cell count was not able to be performed but did not appear to be frankly bloody and g stain showed a few white cells but otherwise negative with culture pending. I suspect this patient has more of a hemarthrosis, Dr. Mcduffie agrees. Recommends compression, decreasing his DOAC as able. Spoke with the patient he is agreeable to decreasing his DOAC at this time. Does not feel that he can discharge home safely he lives alone in his having significant difficulty with ambulation. No other medical cause for admission at this time we will plan for physical therapy eval in the am. APPLICATION DEVELOPMENT PROJECT MANAGER did meet with patient. Hospital course: 04/19: No complications unable to be placed patient admitted to the floor Review of systems: No fever or chills rigors No chest pain palpitations shortness for breath No abdominal pain diarrhea constipation notes vomiting No paresthesia paresis Moves ankle and toes Physical examination: No acute distress HEENT unremarkable Rate and rhythm regular Lungs clear Abdomen nondistended nontender Extremities: Right knee slightly swollen with slight erythema very tender and painful to articulation Assessment and plan: Right knee hemarthrosis while on apixaban * Aspiration culture is pending * No acute signs or symptoms of septic arthritis * Unable to bear weight * We will need rehab placement because patient lives alone unable to manage ADLs Chronic medical conditions:: * Valvular heart disease status post valve repair on apixaban DVT prophylaxis: * Covered with the apixaban Code status: * Full code blue Disposition: * Inpatient awaiting rehab placement Time based billing: * 55 minutes were involved in the evaluation of this patient including dtpt-do-ayny evaluation physical examination discussion with emergency provider review of objective laboratory and imaging findings and EKG [facility] Social History household members: none alcohol intake: current Meds Home Medications and Allergies Home Medications ?Medication ?Instructions ?Recorded ?Confirmed ?Type albuterol 90 mcg/actuation aerosol mcg inhalation 04/01 02/23 History inhaler ascorbic acid (vitamin C) PO 04/19/25 History calcium phos,dibas-vitamin D3 PO 04/19/25 History citalopram 20 mg tablet 20 mg PO BID 04/19/25 History Allergies Allergy/AdvReac Type Severity Reaction Status Date / Time No Known Drug Allergies Allergy Verified 09/19/20 12:29 Exam Vital Signs (past 8 hours): - 04/19/25 09:00 04/19/25 09:30 04/19/25 10:00 Pulse Rate 96 H 100 H Pulse Rate [Right Dorsalis Pedis] Respiratory Rate 14 17 Blood Pressure 156/103 H Pulse Oximetry 97 96 04/19/25 10:00 04/19/25 10:30 04/19/25 11:00 Pulse Rate 101 H 101 H 98 H Pulse Rate [Right Dorsalis Pedis] Respiratory Rate 16 17 18 Blood Pressure Pulse Oximetry 97 96 97 04/19/25 11:30 04/19/25 11:40 04/19/25 11:40 Pulse Rate 84 87 Pulse Rate [Right Dorsalis Pedis] Respiratory Rate 20 21 Blood Pressure 125/68 Pulse Oximetry 96 95 04/19/25 12:00 04/19/25 12:00 04/19/25 12:03 Pulse Rate 88 Pulse Rate [Right Dorsalis Pedis] 85 Respiratory Rate 20 Blood Pressure 117/66 Pulse Oximetry 93 04/19/25 12:30 04/19/25 13:00 04/19/25 13:30 Pulse Rate 84 90 101 H Pulse Rate [Right Dorsalis Pedis] Respiratory Rate 18 18 15 Blood Pressure Pulse Oximetry 92 98 04/19/25 14:00 04/19/25 14:30 04/19/25 15:00 Pulse Rate 86 89 86 Pulse Rate [Right Dorsalis Pedis] Respiratory Rate 15 14 18 Blood Pressure Pulse Oximetry 96 97 95 04/19/25 15:30 Pulse Rate 86 Pulse Rate [Right Dorsalis Pedis] Respiratory Rate 18 Blood Pressure Pulse Oximetry 98 Fraction of Inspired Oxygen 28 SaO2/FiO2 Ratio 339 Oxygen Delivery Method Nasal Cannula Oxygen Flow Rate 2 Objective Labs 04/18/25 12:15 04/18/25 12:15 Assessment & Plan Time-Based Coding :: [TOTAL MINUTES] spent with patient and on the chart (including review of chart, obtaining history, exam, reviewing outside data, placing orders, documenting exam and treatment plan, and counseling patient) on [DATE].
--- NOTE | 2025-04-19 16:56 | CM.DPNOTE ---
DCP Continued: Reviewed EMR and team rounds for pt?s medical status. Per ED Provider, pt not able to bear weight and concerns for safety at home alone for recovery, ordered a PT evaluation. Per PT Eval, recommending SNF due to pt 17 steps into home and non weightbearing without pain. FIBER OPTIC TECHNICIAN entered room, introduced self and role. Patient states he is agreeable to SNF recommendation and denies any other support at home to assist with recovery. He states his son, Christian, lives in [place] and works. FIBER OPTIC TECHNICIAN reviewed [place] Contracted SNF list with pt. Pt identified preference for [facility] ([place] or [facility] ([place] if authorized. FIBER OPTIC TECHNICIAN called previous SNF Rehab facilities and left a voice message requesting a call back to discuss referral. FIBER OPTIC TECHNICIAN sent referral via fax to both facilities for review. Pt states he will need assistance with transportation coordination (no family or friends to transport to facility available). FIBER OPTIC TECHNICIAN called [place] SNF [employer], Teresa #[phone] and left a voice message requesting a call back for coordination. FIBER OPTIC TECHNICIAN sent clinicals for [place] to review for authorization, fax# [phone]. Plan: Anticipating discharge to SNF Rehab, pending acceptance and [place] insurance authorization. CM Team will continue to follow for coordination of discharge plans. TEODORO Odonnell
--- NOTE | 2025-04-19 17:57 | PC.NURSE ---
Pt arrived to floor, 2PA to get to bed. Pt unable to bear any weight on right side. Small dsg to puncture from would cultures. Pt oriented to room & call system. Call light w/in reach. Calls appropriately for needs. Continue w/plan of care.
[2025-04-19] MEDS: CITALOPRAM 10 MG TABLET 20 MG PO (20:44)
--- NOTE | 2025-04-20 | DI.CT.S_ITS ---
PROCEDURE: CT KNEE RIGHT WITHOUT CON INDICATIONS: Right knee pain TECHNIQUE: Noncontrast 1-1.5 mm axial sections acquired from the mid-patella to the proximal tibia, with coronal and sagittal reformats. COMPARISON: [facility], CR, XR KNEE RT 3V, 04/18/2025, 6:45. FINDINGS: Image quality: Excellent. Bones: No acute fracture is seen. No suspicious lytic or blastic lesions are seen. There is moderate medial femorotibial joint space narrowing seen, with associated remodeling changes, including subchondral sclerosis and osteophyte formation along the jointline. There is moderate lateral patellofemoral joint space narrowing with associated remodeling change, with osteophyte formation along the margins of the patella. Soft tissues: A moderate to large joint effusion is seen. No lipohemarthrosis is seen. Atherosclerotic calcification is noted. IMPRESSION: Moderate to large joint effusion without a lipohemarthrosis. Negative for acute fracture. Multifocal degenerative changes are seen. Dictated by: Rogelio Drake M.D. on 04/20/2025 at 15:06 Approved by: Rogelio Drake M.D. on 04/20/2025 at 15:08
[2025-04-20 05:35] VITALS: O2SAT 95
[2025-04-20 07:56] VITALS: BP 87/52; PULSE 85; RESP 16; TEMP 36.3; O2SAT 97
[2025-04-20 07:58] VITALS: BP 135/71; PULSE 69; RESP 16; TEMP 36.9; O2SAT 97
[2025-04-20] MEDS: CITALOPRAM 10 MG TABLET 20 MG PO ×2 (08:26→20:45)
--- NOTE | 2025-04-20 08:54 | CM.DPC ---
Addendum entered by Macie De La Fuente RN 04/20/25 12:37: Kacey from [facility] will submit for Auth today. Addendum entered by Macie De La Fuente RN 04/20/25 10:46: CM left VM with [facility] and [facility]. CM requested status of patient profile review. Original Note: QUENTIN spoke with DONALD Moore CM. Per Teresa, patient is 20% service connected. Patient must be 70% service connected for SNF benefit coverage. CM left VM with [facility]. CM provided update with patient's [facility] coverage.
--- NOTE | 2025-04-20 10:35 | PT.IPTN ---
Current Diagnoses Hemarthrosis, right knee (04/19/25) Physical Therapy Treatment Note M2 PT-IP Current Condition Start: 04/19/25 11:05 Freq: Status: Active Protocol: Document 04/19/25 14:00 [facility] (Rec: 04/19/25 14:24 [facility] Desktop) Physical Therapy Current Condition Current Condition Evaluation Date 04/19/25 Treatment Diagnosis right knee injury and pain, impaired gait and mobility Onset Date 04/18/25 M3 PT-IP Subjective Start: 04/19/25 11:05 Freq: Status: Active Protocol: Document 04/20/25 10:30 [facility] (Rec: 04/20/25 16:13 [facility] [id number]) Subjective Physical Therapy Visit Type Type Treatment Note Visit Start Time 10:07 Visit Stop Time 10:30 Number of FRENCH FOLDER Visits 0 Physical Therapy Visit Comments Patient Comments agreeable to get up Therapy Pain Assessment Pain When Pain Assessed During Mobility Pain Present Pain Present Pain Reported Location Right Knee Pain Management Re-positioning Techniques M4 PT-IP Mobility and Gait Start: 04/19/25 11:05 Freq: Status: Active Protocol: Document 04/20/25 10:30 [facility] (Rec: 04/20/25 16:13 [facility] [id number]) PT-Bed Mobility Assessment Supine to Sit Supine to Sit Moderate Assistance,Head of Bed Elevated,Bedrails Scooting Scooting to Edge of Minimal Assistance Bed PT-Transfer Assessment Sit to and From Stand Sit to and from Minimal Assistance,Moderate Assistance,Use of Upper Stand Extremities Equipment Transfer Assistive Gait Belt,Front Wheeled Walker Device Orthotic/Prosthetic No Devices or Brace: Transfers Transfer Destination Chair Transfer Technique Stand Pivot Transfer Ability Level of Assist Minimal Assistance Comments Mobility Comments supine to sit mod A for trunk and RLE w/cues to use rail and to scoot buttocks fwd. sit to stand mod A with cues for UE placement. Transfer w/scoot of L foot slowly w/cues for walker sequence. Sat in chair w/min A to lower and cues for UE placement. Cues UE use for sit to stand min A from chair to FWW then sat FWW min A . Seated exercises then left with call light in reach and edu to use call light to get back to bed Gait Assessment Comments Gait Comments unable PT-Balance Assessment Sitting Balance and Reactions Static Sitting Normal Balance Ability Dynamic Sitting Good Balance Ability Standing Balance and Reactions Static Standing Fair Balance Ability Dynamic Standing Fair Balance Ability Device Used FWW M5 PT-IP Objective Assessments Start: 04/19/25 11:05 Freq: Status: Active Protocol: Document 04/20/25 10:30 [facility] (Rec: 04/20/25 16:13 [facility] [id number]) Orientation Orientation/Cognition Level of Alertness Alert Language Function No Deficits Noted Ability Safety Awareness Understands Safety Issues Memory Description [employer] Impaired Gross Range of Motion Lower Extremity ROM Assessment Right Impaired Strength Lower Extremity Strength Assessment Right Impaired Hip 3/5 Knee 3-/5 Ankle 3/5 M6 PT-IP Treatment Start: 04/19/25 11:05 Freq: Status: Active Protocol: Document 04/20/25 10:30 [facility] (Rec: 04/20/25 16:13 [facility] [id number]) Physical Therapy Treatment Exercises Exercises Ankle Pumps,Seated Knee Flexion/Extension Education Education Provided Safety Other Treatments Other Treatment marches, hip IR/ER 2x10 ea Performed M7 PT-IP Assessment and Plan Start: 04/19/25 11:05 Freq: Status: Active Protocol: Document 04/20/25 10:30 [facility] (Rec: 04/20/25 16:13 [facility] [id number]) PT Summary Assessment and Plan Potential Rehabilitation Good Potential Status of Condition Evolving at Evaluation Summary Progress Towards Progressing Toward Goals Goals Assessment Summary Pt demonstrated improved mobility today with ability to transfer but R knee remains painful so unable to WB into RLE to ambulate at this time. He was able to do a SPT with FWW though with inc time. Tolerated gentle seated exercises today. Would benefit from SNF prior to return home. Goals Bed Mobility Goal Independent Transfer Goal Independent,Front Wheeled Walker Gait Goal Independent,Front Wheel Walker Gait Distance 150 feet Other Goals Up/down 17 steps with bilateral rails and CG assist. Days to Meet Goals 15 Frequency of Treatment Frequency Of Once a Day Treatment Treatment Plan Physical Therapy Bed Mobility Training,Transfer Training,Gait Training, Treatment Plan Therapeutic Exercise,Balance Retraining,Discharge Planning,Hot or Cold Pack,Neuromuscular Re-ed,Manual Therapy Weight Bearing Status Weight Bearing Weight Bear as Tolerated Status Allowed Weight right knee Bearing Amount ( enter % or #) (%) Recommendations To Nursing Amount of Assist 1 Person Assist Needed Discharge Recommendations PT Discharge SNF Rehab Recommendations Other Discharge not safe to return home alone Recommendations Equipment Needed for anticipate FWW needed but defer to SNF Home Before Discharge Transportation Needs Wheelchair/Cabulance at Discharge - PT assist 1
--- NOTE | 2025-04-20 14:09 | PM.PN.1 ---
Subjective Subjective Date Patient Seen: 04/20/25 Interval history: Chief complaint: Hemarthrosis causing right knee pain History of present illness: 79-year-old male who lives alone evaluated in the emergency department for severe knee pain with findings of knee arthrosis. Below is the emergency room narrative. Apparently patient was attempted to be placed or find a disposition for multiple emergency room shift but were unable to accomplish such. Request for the hospitalist service to place on the floor due to a very prolonged emergency room stay until a intermediate facility disposition could be arranged for the patient. 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 Gilliam, orthopedics. She advises that if there is no concern for septic joint we can use elevation, Brandan wraps and pain control and she will see the patient in follow-up this week. Based on exam I believe the patient has a non infectious effusion or possibly hemarthrosis. Labs and x-ray have been ordered. 07:00 Patient care transferred to Dr. Mcintosh at the change of shift with lab work and radiographs pending. Lab work reassuring, patient with no redness, no lab work indication of septic joint. However between approximately 7:00 a.m. and 11:00 a.m. patient with significant worsening and enlargement of joint effusion. At that time there was a concern for an active bleed. However given that CT was down and patient was stable decision was made to Brandan wrap the knee and observe. Orthopedics was consulted at outside facility who recommended arthrocentesis. At the time of this addendum at 4:35 p.m. arthrocentesis results pending. Patient much more comfortable. Swelling reduced. Arthrocentesis with approximately 10 mL of marija blood. Patient unable to walk secondary to pain at this time and therefore is also pending social work evaluation for possible help at home. Signed out to Dr. Scott pending these results 04/18/25 Dr. Scott: Patient tap of his knee results were pending plan of callback orthopedic surgery at outside facility. CT is down and has not been available. Report was marija blood on arthrocentesis unfortunately labs clotted and they were unable to obtain a cell count, gram stain is negative for organisms occasional WBC. Cultures are pending, no fluid crystals present. X-ray showed a [id number] joint effusion vascular calcifications nearly complete patellofemoral joint space narrowing with lateral patellar tilt. Wyoh-ul-pbdxxoli joint space narrowing also seen in the medial patellofemoral compartments. Patient's labs show normal white count, ESR of 4, hemoglobin was 13.6 and repeated at 13.1 platelets are a 163. Chemistries are overall appropriate bilirubin has a little bit elevated C-reactive protein is less than 0.5. AST ALT and lipase are normal. INR 1.3, PTT is 35. Patient has a seen and evaluated by myself patient's left knee has a mild tenderness he was able to stand but that has very uncomfortable moving his knee. Does not appear to be increasingly swollen had Brandan wrap placed. His knee was evaluated there was no ecchymosis. Has a Band-Aid over where he had his tap. Neurovascularly intact without any other swelling or changes has not had any other atypical bruising or bleeding he denies any recent trauma. Spoke with on-call orthopedic surgery Dr. Mcduffie at [facility]. Dr. Mcintosh had consulted earlier in the day. Called back with joint aspiration results cell count was not able to be performed but did not appear to be frankly bloody and g stain showed a few white cells but otherwise negative with culture pending. I suspect this patient has more of a hemarthrosis, Dr. Mcduffie agrees. Recommends compression, decreasing his DOAC as able. Spoke with the patient he is agreeable to decreasing his DOAC at this time. Does not feel that he can discharge home safely he lives alone in his having significant difficulty with ambulation. No other medical cause for admission at this time we will plan for physical therapy eval in the am. ECONOMIC SPECIALIST did meet with patient. Hospital course: 04/19: No complications unable to be placed patient admitted to the floor 04/20: Pain warmth and tenderness and swelling of the right lower extremity no fevers or chills we will perform an MRI of the right knee Review of systems: No fever or chills rigors No chest pain palpitations shortness for breath No abdominal pain diarrhea constipation notes vomiting No paresthesia paresis Moves ankle and toes Physical examination: No acute distress HEENT unremarkable Rate and rhythm regular Lungs clear Abdomen nondistended nontender Extremities: Right knee slightly swollen with slight erythema very tender and painful to articulation Assessment and plan: Right knee hemarthrosis while on apixaban Aspiration culture is pending No acute signs or symptoms of septic arthritis Unable to bear weight We will need rehab placement because patient lives alone unable to manage ADLs Chronic medical conditions:: Valvular heart disease status post valve repair on apixaban DVT prophylaxis: Covered with the apixaban Code status: Full code blue Disposition: Inpatient awaiting rehab placement Time based billin minutes were involved in the evaluation of this patient including [id number] evaluation physical examination discussion with emergency provider review of objective laboratory and imaging findings and EKG Exam Vital Signs (past 8 hours): - 04/20/25 07:56 04/20/25 07:58 Temperature 97.3 F L 98.4 F Pulse Rate 85 69 Respiratory Rate 16 16 Blood Pressure 87/52 L 135/71 Pulse Oximetry 97 97 Fraction of Inspired Oxygen 28 SaO2/FiO2 Ratio 339 Oxygen Delivery Method Nasal Cannula Oxygen Flow Rate 2 Objective Labs 04/18/25 12:15 04/18/25 12:15 [facility] Social History household members: none Smoking Status: Never smoker alcohol intake: current Assessment & Plan Time-Based Coding :: [TOTAL MINUTES] spent with patient and on the chart (including review of chart, obtaining history, exam, reviewing outside data, placing orders, documenting exam and treatment plan, and counseling patient) on [DATE]. Quality VTE Deep Vein Thrombosis/Pulmonary Embolism Present on Admission: No
[2025-04-20 15:55] VITALS: BP 145/69; PULSE 73; RESP 16; TEMP 36.1; O2SAT 95
[2025-04-20 20:25] VITALS: BP 135/68; PULSE 68; RESP 18; TEMP 35.8; O2SAT 96
--- NOTE | 2025-04-21 07:23 | P.PN_ITS ---
Subjective Subjective Interval history: Summary: Chief complaint: Hemarthrosis causing right knee pain History of present illness: 79-year-old male who lives alone evaluated in the emergency department for severe knee pain with findings of knee arthrosis. Below is the emergency room narrative. Apparently patient was attempted to be placed or find a disposition for multiple emergency room shift but were unable to accomplish such. Request for the hospitalist service to place on the floor due to a very prolonged emergency room stay until a fpc facility disposition could be arranged for the patient. 04/19: No complications unable to be placed patient admitted to the floor 04/20: Pain warmth and tenderness and swelling of the right lower extremity no fevers or chills we will perform an MRI of the right knee S: Still having a lot of knee pain. Denies any dyspnea. O: NAD, alert and oriented. Fluent speech. Lungs are clear, normal rate and effort. Heart is regular, no murmur gallop or rub. Abdomen is soft, non distended. Extremities are free of edema. Consulted with Orthopedic surgery, they did do a 2nd to aspiration for 70 mL of blood. This is sent for crystals and cultures. Pain was improved. A/P: 1. Right knee hemarthrosis while on apixaban, active. * Aspiration culture is negative from the day of admission * No acute signs or symptoms of septic arthritis * Unable to bear weight * We will need rehab placement because patient lives alone unable to manage ADLs 2. Chronic medical conditions, stable. * Valvular heart disease status post valve repair on apixaban PLAN: -hold anticoagulation for now. -knee was tapped for 70 mL today. -fpc facility placement for rehabilitation efforts is in progress. Exam Vital Signs (past 8 hours): Fraction of Inspired Oxygen 28 SaO2/FiO2 Ratio 339 Oxygen Delivery Method Nasal Cannula Oxygen Flow Rate 0 Objective Labs 04/18/25 12:15 04/18/25 12:15 [facility] Social History household members: none Smoking Status: Never smoker alcohol intake: current Assessment & Plan Time-Based Coding :: [TOTAL MINUTES] spent with patient and on the chart (including review of chart, obtaining history, exam, reviewing outside data, placing orders, documenting exam and treatment plan, and counseling patient) on [DATE]. Quality VTE Deep Vein Thrombosis/Pulmonary Embolism Present on Admission: No
[2025-04-21 08:00] VITALS: BP 139/70; PULSE 69; RESP 12; TEMP 35.7; O2SAT 97
[2025-04-21] MEDS: CITALOPRAM 10 MG TABLET 20 MG PO ×2 (08:37→20:49)
--- NOTE | 2025-04-21 09:25 | CM.DPC ---
DCP Cont. Reviewed EMR and team rounds for pt's medical status and updates. Called [facility] to confirm if they had pt's insurance member ID# in order to submit auth. They found it, and have just submitted the auth request this morning. They will call us once they auth is approved and they can accept pt.
--- NOTE | 2025-04-21 12:18 | P.CONS_ITS ---
History of Present Illness Consult details Date Patient Seen: 04/21/25 Time Patient Seen: 12:18 Chief complaint: right knee pain Reason for consult: Right knee hemarthrosis Requesting provider: Nick Flores Narrative: 79-year-old male with history of valve replacement on anticoagulation who had sudden onset of swelling of his right knee approximately 3 days ago. He does not report any substantial trauma to the knee. He denies any substantial pain prior to this. He was seen in the emergency room that day and was diagnosed with a suspected hemarthrosis. Aspiration was performed drawing off about 10 mL of bloody fluid which was sent for culture and crystals. Crystal exam was negative for any crystals. Cultures have been negative. Patient had continued expansion of the hemarthrosis despite compression. Was admitted for comfort and continued observation. Today continues to have problems with swelling of the right knee as well as difficulty with weight-bearing. Ortho consult was requested. Patient reports no fevers. Pain isolated to the knee. Meds Home Medications and Allergies Home Medications ?Medication ?Instructions ?Recorded ?Confirmed ?Type albuterol 90 mcg/actuation aerosol mcg inhalation 04/01 02/23 History inhaler ascorbic acid (vitamin C) PO 04/19/25 History calcium phos,dibas-vitamin D3 PO 04/19/25 History citalopram 20 mg tablet 20 mg PO BID 04/19/25 History Allergies Allergy/AdvReac Type Severity Reaction Status Date / Time No Known Drug Allergies Allergy Verified 09/19/20 12:29 Exam Vital Signs (past 8 hours): - 04/21/25 08:00 Temperature 96.3 F L Pulse Rate 69 Respiratory Rate 12 Blood Pressure 139/70 Pulse Oximetry 97 Oxygen Flow Rate 0 Fraction of Inspired Oxygen 28 SaO2/FiO2 Ratio 339 Oxygen Delivery Method Nasal Cannula Oxygen Flow Rate 0 Narrative Exam Narrative: Right lower extremity is without gross deformity. There is a large effusion of the right knee. There is some minimal tenderness about the knee. The surrounding skin is nonerythematous and is not excessively warm. Range of motion of the knee is limited due to the large effusion. Distal motor and sensory exams are intact. Objective Imaging Knee films: My impression: AP, lateral, and sunrise views of the right knee performed April 18, 2025 were personally assessed. There are no acute fractures, dislocations, or bony lytic or blastic lesions. There is mild to moderate arthritic changes of the right knee along with more moderate to severe changes of the patellofemoral articulation. CT scan right knee: My impression: CT scan of the right knee performed April 20, 2025 is personally assessed. There are no acute fractures, dislocations, or bony lytic or blastic lesions. There is evidence of tricompartmental osteoarthritic change along with osteophytes in all 3 compartments, but most profound in the patellofemoral articulation. There is a large effusion likely hemarthrosis. Labs 04/18/25 12:15 04/18/25 12:15 [facility] Social History household members: none Tobacco & Substance Use Smoking Status: Never smoker alcohol intake: current Assessment & Plan Assessment & Plan narrative: Right knee hemarthrosis We discussed diagnosis and management options. The previous aspiration did not produce any evidence of gout on crystal exam, and cultures have been negative. His exam shows a large effusion likely hemarthrosis from his history. We discussed options for treatment and I think it would be reasonable for us to attempt a repeat aspiration to help reduce the volume of fluid in the knee and help with his overall pain relief. I did discuss that there is a small risk of infection from an aspiration as well as the risks at the hemarthrosis can reaccumulate following the aspiration. He is in agreement with moving forward with a recommendation for repeat aspiration. Right knee skin was prepped with ChloraPrep and then the knee was aspirated using an 18 gauge needle on a 60 cc syringe through a superolateral approach. A total of 70 cc of marija blood was aspirated from the knee without complication. Patient tolerated well. He had immediate improvement in pain and improved range of motion. An Brandan wrap was then applied for compression. Recommend weight-bearing as tolerated. Clear for discharge from orthopedic standpoint if pain is tolerated. May follow up with Orthopedics if needed if he continues to experience pain from arthritis or has recurrent effusions. Time-Based Coding :: [TOTAL MINUTES] spent with patient and on the chart (including review of chart, obtaining history, exam, reviewing outside data, placing orders, documenting exam and treatment plan, and counseling patient) on [DATE]. PROFEE Charge Codes Inpatient or Observation consultation: [id number]
--- NOTE | 2025-04-21 15:31 | PT.IPTN ---
Current Diagnoses Hemarthrosis, right knee (04/19/25) Physical Therapy Treatment Note M2 PT-IP Current Condition Start: 04/19/25 11:05 Freq: Status: Active Protocol: Document 04/19/25 14:00 DLM (Rec: 04/19/25 14:24 DLM Desktop) Physical Therapy Current Condition Current Condition Evaluation Date 04/19/25 Treatment Diagnosis right knee injury and pain, impaired gait and mobility Onset Date 04/18/25 M3 PT-IP Subjective Start: 04/19/25 11:05 Freq: Status: Active Protocol: Document 04/21/25 15:31 DLM (Rec: 04/21/25 15:43 DLM Desktop) Subjective Physical Therapy Visit Type Type Treatment Note Visit Start Time 15:00 Visit Stop Time 15:31 Notes 31 min Number of OPERATIONS SUPPORT ANALYST Visits 0 Physical Therapy Visit Comments Patient Comments He is eager to go home. His Firefighter Marine can give him a ride. He feels the pain medication is making his head foggy. Patient Goals get better Therapy Pain Assessment Pain When Pain Assessed During Mobility Pain Present Pain Present Pain Reported Location Right Knee Intensity 4 Scale Used Numeric (0 - 10) Description Aching,Tender,Tightness Pain Behaviors Guarding,Wincing Pain Management Apply Cold,Elevation,Re-positioning Techniques M4 PT-IP Mobility and Gait Start: 04/19/25 11:05 Freq: Status: Active Protocol: Document 04/21/25 15:31 DLM (Rec: 04/21/25 15:43 DLM Desktop) PT-Bed Mobility Assessment Supine to Sit Supine to Sit Standby Assistance,Bedrails Scooting Scooting to Edge of Independent Bed PT-Transfer Assessment Sit to and From Stand Sit to and from Contact Guard Assistance,Use of Upper Extremities Stand Equipment Transfer Assistive Gait Belt,Front Wheeled Walker Device Transfers Transfer Destination Chair Transfer Technique Stand Step Pivot Transfer Ability Level of Assist Contact Guard Assistance,Use of Upper Extremities Comments Mobility Comments verbal cues during stand to sit to kick right foot out to manage his right knee pain and limited ROM, pt left sitting up in recliner with feet elevated and ice on right knee, pt has call light close and he was educated to have nursing assist with all gait to prevent falls. Gait Assessment Gait Gait Assistance Standby Assistance,Contact Guard Assist Required: Distance (Feet) 100 Able to Maintain Yes Weight Bearing Status During Gait Assistive Devices Assistive Device Front Wheeled Walker Gait Deviations General Gait Pattern Antalgic,Decreased Stride Length Factors Limiting Gait Function Factors Limiting Decreased Activity Tolerance,Decreased Strength,Limited Gait Function Range of Motion Comments Gait Comments he c/o knee stiffness during gait but less pain than yesterday. PT-Balance Assessment Sitting Balance and Reactions Static Sitting Normal Balance Ability Dynamic Sitting Normal Balance Ability Standing Balance and Reactions Static Standing Good Balance Ability Dynamic Standing Good Balance Ability Device Used FWW M5 PT-IP Objective Assessments Start: 04/19/25 11:05 Freq: Status: Active Protocol: Document 04/20/25 10:30 [facility] (Rec: 04/20/25 16:13 [facility] [id number]) Orientation Orientation/Cognition Level of Alertness Alert Language Function No Deficits Noted Ability Safety Awareness Understands Safety Issues Memory Description Meat Clerk Impaired Gross Range of Motion Lower Extremity ROM Assessment Right Impaired Strength Lower Extremity Strength Assessment Right Impaired Hip 3/5 Knee 3-/5 Ankle 3/5 M6 PT-IP Treatment Start: 04/19/25 11:05 Freq: Status: Active Protocol: Document 04/21/25 15:31 DLM (Rec: 04/21/25 15:43 DLM Desktop) Physical Therapy Treatment Exercises Exercises Ankle Pumps,Quad Sets,Straight Leg Raises,Seated Knee Flexion/Extension Knee ROM Measurement 100 degrees flexion seated, active Other Treatments Other Treatment he needs assist for straight leg raises Performed he describes quad muscle fatigue with quad sets Discharge planning discussed with pt and clarified that he needs to be safe doing stairs and gait before he will be safe to go home alone. M7 PT-IP Assessment and Plan Start: 04/19/25 11:05 Freq: Status: Active Protocol: Document 04/21/25 15:31 DLM (Rec: 04/21/25 15:43 DLM Desktop) PT Summary Assessment and Plan Summary Impairments Pain,ROM,Strength,Balance,Coordination,Sensation,Bed Mobility,Transfers,Gait,Activity Tolerance Progress Towards Progressing Toward Goals Goals Assessment Summary He demonstrates good progress in therapy today. He reports having less pain since his knee was aspirated today. Brandan wrap in place on right knee. He was able to increase his distance of gait with the FWW and he is tolerating knee ROM better. He has not progressed to stair training yet. Pt has 17 steps to go up to get into his apt. He lives alone. Continue to recommend SNF rehab. Goals Bed Mobility Goal Independent Transfer Goal Independent,Front Wheeled Walker Gait Goal Independent,Front Wheel Walker Gait Distance 150 feet Other Goals Up/down 17 steps with bilateral rails and CG assist. Days to Meet Goals 15 Frequency of Treatment Frequency Of Once a Day Treatment Treatment Plan Physical Therapy Bed Mobility Training,Transfer Training,Gait Training, Treatment Plan Therapeutic Exercise,Balance Retraining,Discharge Planning,Hot or Cold Pack,Neuromuscular Re-ed,Manual Therapy Weight Bearing Status Weight Bearing Weight Bear as Tolerated Status Allowed Weight right knee Bearing Amount ( enter % or #) (%) Recommendations To Nursing Amount of Assist 1 Person Assist Needed Discharge Recommendations PT Discharge SNF Rehab Recommendations Other Discharge not safe to return home alone Recommendations Equipment Needed for anticipate FWW needed but defer to SNF Home Before Discharge Transportation Needs Wheelchair/Cabulance at Discharge - PT assist 1
[2025-04-21 19:30] VITALS: BP 135/69; PULSE 67; RESP 18; TEMP 35.8; O2SAT 96
--- NOTE | 2025-04-22 07:23 | P.PN_ITS ---
Subjective Subjective Interval history: S: He was less pain after draina without assist. Ge yesterday. He was extremely weak in his great difficulty standing from a sitting position without significant assist. Discussed at rounds, he was appropriate for jail facility [facility] given his profound weakness and very high risk of fall and injury. O: VSS. NAD, alert and oriented. Fluent speech. Lungs are clear, normal rate and effort. Heart is regular, no murmur gallop or rub. Abdomen is soft, non distended. Extremities are free of edema. A/P: 1. Right knee hemarthrosis while on apixaban, active. * Aspiration culture is negative from the day of admission * No acute signs or symptoms of septic arthritis * Unable to bear weight * We will need rehab placement because patient lives alone unable to manage ADLs 2. Profound weakness affecting both legs with secondary gait instability. 3. Chronic medical conditions, stable. * Valvular heart disease status post valve repair on apixaban PLAN: -hold anticoagulation for now. -knee was tapped for 70 mL 04/21. -PT daily. -jail facility placement for rehabilitation efforts is in progress. Exam Vital Signs (past 8 hours): Fraction of Inspired Oxygen 28 SaO2/FiO2 Ratio 339 Oxygen Delivery Method Room Air Oxygen Flow Rate 0 Objective Labs 04/18/25 12:15 04/18/25 12:15 [facility] Social History household members: none Smoking Status: Never smoker alcohol intake: current Assessment & Plan Time-Based Coding :: [TOTAL MINUTES] spent with patient and on the chart (including review of chart, obtaining history, exam, reviewing outside data, placing orders, documenting exam and treatment plan, and counseling patient) on [DATE]. Quality VTE Deep Vein Thrombosis/Pulmonary Embolism Present on Admission: No
[2025-04-22 07:45] VITALS: BP 143/76; PULSE 67; RESP 16; TEMP 36; O2SAT 96
[2025-04-22] MEDS: CITALOPRAM 10 MG TABLET 20 MG PO ×2 (08:20→21:02)
[2025-04-22] MEDS: SODIUM CHLORIDE 0.9% FLUSH 10 ML IV ×2 (09:00→21:02)
--- NOTE | 2025-04-22 09:13 | CM.DPC ---
Per Kacey with [facility], Auth for SNF still pending.
--- NOTE | 2025-04-22 10:10 | PM.PN.IH.1 ---
Subjective Subjective Date Patient Seen: 04/22/25 Time Patient Seen: 10:10 Interval history: Patient reports improvement in his pain seems in the right knee since his aspiration yesterday. He has no new complaints. Exam Vital Signs (past 8 hours): - 04/22/25 07:45 04/22/25 07:45 Temperature 96.8 F L Pulse Rate 67 Respiratory Rate 16 Blood Pressure 143/76 H Pulse Oximetry 96 Oxygen Delivery Method Room Air Oxygen Flow Rate 0 Fraction of Inspired Oxygen 28 SaO2/FiO2 Ratio 339 Oxygen Delivery Method Room Air Oxygen Flow Rate 0 Narrative Exam Narrative: Right knee does appear to have a small recurrent effusion, less than what was present yesterday. Range of motion is improved over what he had yesterday. Distal motor and sensory exams are intact. Objective Labs 04/18/25 12:15 04/18/25 12:15 PFS Social History household members: none Smoking Status: Never smoker alcohol intake: current Assessment & Plan Assessment & Plan narrative: Right knee hemarthrosis Recommend continued conservative treatment with compression and resuming activities as he tolerates. Pain control per primary team. We did discuss that he does have pre-existing arthritis of the knee and this may become more symptomatic over time. He may follow up with Orthopedics after discharge if needed for recurrent effusions or persistent arthritic type pain after 1-2 weeks. Time-Based Coding :: [TOTAL MINUTES] spent with patient and on the chart (including review of chart, obtaining history, exam, reviewing outside data, placing orders, documenting exam and treatment plan, and counseling patient) on [DATE]. Quality VTE Deep Vein Thrombosis/Pulmonary Embolism Present on Admission: No [employer] Document charge(s): Yes Charge Codes Subsequent inpatient/observation care: [id number]
--- NOTE | 2025-04-22 11:05 | PT.IPTN ---
Current Diagnoses Hemarthrosis, right knee (04/19/25) Physical Therapy Treatment Note M2 PT-IP Current Condition Start: 04/19/25 11:05 Freq: Status: Active Protocol: Document 04/19/25 14:00 DLM (Rec: 04/19/25 14:24 DLM Desktop) Physical Therapy Current Condition Current Condition Evaluation Date 04/19/25 Treatment Diagnosis right knee injury and pain, impaired gait and mobility Onset Date 04/18/25 M3 PT-IP Subjective Start: 04/19/25 11:05 Freq: Status: Active Protocol: Document 04/22/25 11:05 DLM (Rec: 04/22/25 12:25 DLM Desktop) Subjective Physical Therapy Visit Type Type Treatment Note Visit Start Time 10:25 Visit Stop Time 11:05 Notes 40 min Number of PATIENT FINANCIAL REP Visits 0 Physical Therapy Visit Comments Patient Comments He reports less pain in his knee during gait today and improved tolerance for moving right LE. Patient Goals He wants to get well and go home. Therapy Pain Assessment Pain When Pain Assessed After Treatment Pain Present Pain Present Pain Reported Location Right Knee Intensity 6 Scale Used Numeric (0 - 10) Description Aching,Tender,Tightness Pain Behaviors Guarding,Wincing Pain Management Apply Cold,Elevation,Re-positioning Techniques M4 PT-IP Mobility and Gait Start: 04/19/25 11:05 Freq: Status: Active Protocol: Document 04/22/25 11:05 DLM (Rec: 04/22/25 12:25 DLM Desktop) PT-Bed Mobility Assessment Supine to Sit Supine to Sit Standby Assistance,Bedrails Scooting Scooting to Edge of Independent Bed PT-Transfer Assessment Sit to and From Stand Sit to and from Contact Guard Assistance,Use of Upper Extremities Stand Equipment Transfer Assistive Gait Belt,Front Wheeled Walker Device Transfers Transfer Destination Chair Transfer Technique Stand Step Pivot Transfer Ability Level of Assist Contact Guard Assistance,Use of Upper Extremities Comments Mobility Comments He needs verbal cues to kick right foot out before sitting down less often. He demonstrates good use of UE support during sit-stand. Ice applied to right knee after activity due to pain increase from 3-4/10 to 5-6/ 10 with therapy activity. Pt left up in recliner with feet elevated and nursing aware. Call light is close. Gait Assessment Gait Gait Assistance Standby Assistance,Contact Guard Assist Required: Distance (Feet) 200 Able to Maintain Yes Weight Bearing Status During Gait Assistive Devices Assistive Device Front Wheeled Walker Gait Deviations General Gait Pattern Antalgic,Decreased Stride Length Factors Limiting Gait Function Factors Limiting Decreased Activity Tolerance,Decreased Strength,Limited Gait Function Range of Motion Comments Gait Comments he c/o knee stiffness during gait but less pain Stair Climbing Assessment Evaluation Level of Assist On Contact Guard Assistance Stairs Devices Stair Climbing Left Railing,Right Railing Assistive Devices Technique/Endurance Stair Climbing Ascend and Descend Direction Stair Climbing Step to Step Technique Number of Steps 3 Climbed Stair Climbing Set # 2 Repetitions (reps) Comments Stair Climbing He was able to go up the stairs on second attempt with Comments one rail but still needs two rails to go down. Educated pt that he would need one UE to manage FWW on the stairs if he was going to go up/down alone. PT-Balance Assessment Sitting Balance and Reactions Static Sitting Normal Balance Ability Dynamic Sitting Normal Balance Ability Standing Balance and Reactions Static Standing Good Balance Ability Dynamic Standing Good Balance Ability Device Used FWW M5 PT-IP Objective Assessments Start: 04/19/25 11:05 Freq: Status: Active Protocol: Document 04/20/25 10:30 [facility] (Rec: 04/20/25 16:13 [facility] [id number]) Orientation Orientation/Cognition Level of Alertness Alert Language Function No Deficits Noted Ability Safety Awareness Understands Safety Issues Memory Description Longterm Impaired Gross Range of Motion Lower Extremity ROM Assessment Right Impaired Strength Lower Extremity Strength Assessment Right Impaired Hip 3/5 Knee 3-/5 Ankle 3/5 M6 PT-IP Treatment Start: 04/19/25 11:05 Freq: Status: Active Protocol: Document 04/22/25 11:05 DLM (Rec: 04/22/25 12:25 DLM Desktop) Physical Therapy Treatment Exercises Exercises Ankle Pumps,Quad Sets,Passive Knee Extension Hang, Seated Knee Flexion/Extension Knee ROM Measurement 5-100 Education Education Provided Safety Other Treatments Other Treatment Discussed barriers to discharge Performed M7 PT-IP Assessment and Plan Start: 04/19/25 11:05 Freq: Status: Active Protocol: Document 04/22/25 11:05 DLM (Rec: 04/22/25 12:25 DLM Desktop) PT Summary Assessment and Plan Summary Impairments Pain,ROM,Strength,Balance,Coordination,Sensation,Bed Mobility,Transfers,Gait,Activity Tolerance Progress Towards Progressing Toward Goals Goals Assessment Summary Eulalio is eager to get better and be able to go home. He reports his knee pain is a little better today but the swelling may have increased a little since yesterday. He was able to increase his distance of gait and start stair training today. He had increased right knee pain from 3-4/10 to 5-6/10 with activity. He is still not ready to go home alone and go up/down 17 steps to enter his apt. Continue to recommend SNF rehab at discharge. Pt is unsure if he has a FWW at home that he could use. Goals Bed Mobility Goal Independent Transfer Goal Independent,Front Wheeled Walker Gait Goal Independent,Front Wheel Walker Gait Distance 150 feet Other Goals Up/down 17 steps with bilateral rails and CG assist. Days to Meet Goals 15 Frequency of Treatment Frequency Of Once a Day Treatment Treatment Plan Physical Therapy Bed Mobility Training,Transfer Training,Gait Training, Treatment Plan Therapeutic Exercise,Balance Retraining,Discharge Planning,Hot or Cold Pack,Neuromuscular Re-ed,Manual Therapy Other manage right knee pain s/p bleed Recommendations and Next Treatment Focus Weight Bearing Status Weight Bearing Weight Bear as Tolerated Status Allowed Weight right knee Bearing Amount ( enter % or #) (%) Recommendations To Nursing Amount of Assist 1 Person Assist Needed Discharge Recommendations PT Discharge SNF Rehab Recommendations Equipment Needed for needs FWW for home, defer to SNF Home Before Discharge Transportation Needs Private Vehicle,Wheelchair/Cabulance at Discharge - PT assist 1
[2025-04-22] MEDS: HYDROCORTISONE 2.5% CREAM 30 GM 1 APPLIC TOP ×2 (11:37→18:14)
[2025-04-22 20:20] VITALS: BP 140/76; PULSE 68; RESP 16; TEMP 35.7; O2SAT 96
--- NOTE | 2025-04-23 07:43 | PM.PN.1 ---
Subjective Subjective Interval history: S: He was doing better except for his knee is still painful. He was able to ambulate. He was somewhat resistant to rehab facility plans. His son is here today, lucency at 0, and offers to take him there. O: VSS NAD, alert and oriented. Fluent speech. Lungs are clear, normal rate and effort. Heart is regular, no murmur gallop or rub. Abdomen is soft, non distended. Extremities are free of edema. A/P: 1. Right knee hemarthrosis while on apixaban, active. 2. Profound weakness affecting both legs with secondary gait instability. 3. Remote MV repair. 4. Stage 4 prostate cancer. 5. Remote cranial hemangioma. 6. PAF. PLAN: -hold anticoagulation for now. -knee was tapped for 70 mL 04/21. -PT daily. -[facility] for rehabilitation efforts is in progress. Awaiting SNF auth. Exam Vital Signs (past 8 hours): Fraction of Inspired Oxygen 28 SaO2/FiO2 Ratio 339 Oxygen Delivery Method Room Air Oxygen Flow Rate 0 Objective Labs 04/18/25 12:15 04/18/25 12:15 [facility] Social History household members: none Smoking Status: Never smoker alcohol intake: current Assessment & Plan Time-Based Coding :: [TOTAL MINUTES] spent with patient and on the chart (including review of chart, obtaining history, exam, reviewing outside data, placing orders, documenting exam and treatment plan, and counseling patient) on [DATE]. Quality VTE Deep Vein Thrombosis/Pulmonary Embolism Present on Admission: No
[2025-04-23 09:00] VITALS: BP 130/61; PULSE 68; RESP 14; TEMP 35.8; O2SAT 94
--- NOTE | 2025-04-23 10:26 | PT.IPTN ---
Current Diagnoses Hemarthrosis, right knee (04/19/25) Physical Therapy Treatment Note M2 PT-IP Current Condition Start: 04/19/25 11:05 Freq: Status: Active Protocol: Document 04/19/25 14:00 DLM (Rec: 04/19/25 14:24 DLM Desktop) Physical Therapy Current Condition Current Condition Evaluation Date 04/19/25 Treatment Diagnosis right knee injury and pain, impaired gait and mobility Onset Date 04/18/25 M3 PT-IP Subjective Start: 04/19/25 11:05 Freq: Status: Active Protocol: Document 04/23/25 09:51 DCW (Rec: 04/23/25 10:26 DCW [id number]) Subjective Physical Therapy Visit Type Type Treatment Note Visit Start Time 09:51 Visit Stop Time 10:15 Notes 24 min Number of TRIBAL DELEGATE Visits 0 Physical Therapy Visit Comments Patient Comments Pt notes increased pain today, feels like there is more fluid in his knee. Patient Goals Agreeable to PT Therapy Pain Assessment Pain Present Pain Present Pain Reported Location Right Knee Intensity 6 Scale Used Numeric (0 - 10) Description Burning,Shooting M4 PT-IP Mobility and Gait Start: 04/19/25 11:05 Freq: Status: Active Protocol: Document 04/23/25 09:51 DCW (Rec: 04/23/25 10:26 DCW [id number]) PT-Transfer Assessment Sit to and From Stand Sit to and from Contact Guard Assistance,Use of Upper Extremities Stand Equipment Transfer Assistive Gait Belt,Front Wheeled Walker Device Transfers Transfer Destination Chair Transfer Ability Level of Assist Contact Guard Assistance,Use of Upper Extremities Comments Mobility Comments Pt demonstrating improved transfers without cues. Left in recliner with call button within reach. Gait Assessment Gait Gait Assistance Standby Assistance,Contact Guard Assist Required: Distance (Feet) 212 Able to Maintain Yes Weight Bearing Status During Gait Assistive Devices Assistive Device Front Wheeled Walker Gait Deviations General Gait Pattern Antalgic,Decreased Stride Length Factors Limiting Gait Function Factors Limiting Decreased Activity Tolerance,Decreased Strength,Limited Gait Function Range of Motion Comments Gait Comments C/o increased pain compared to yesterday Stair Climbing Assessment Evaluation Level of Assist On Contact Guard Assistance Stairs Devices Stair Climbing Left Railing,Right Railing Assistive Devices Technique/Endurance Stair Climbing Ascend and Descend Direction Stair Climbing Step to Step Technique Number of Steps 3 Climbed Stair Climbing Set # 3 Repetitions (reps) Comments Stair Climbing Continues to use bilateral railing, noted feeling his Comments right knee was weak with descending stairs, despite performing step-to pattern. M5 PT-IP Objective Assessments Start: 04/19/25 11:05 Freq: Status: Active Protocol: Document 04/20/25 10:30 [facility] (Rec: 04/20/25 16:13 [facility] [id number]) Orientation Orientation/Cognition Level of Alertness Alert Language Function No Deficits Noted Ability Safety Awareness Understands Safety Issues Memory Description Isolation Washer Impaired Gross Range of Motion Lower Extremity ROM Assessment Right Impaired Strength Lower Extremity Strength Assessment Right Impaired Hip 3/5 Knee 3-/5 Ankle 3/5 M6 PT-IP Treatment Start: 04/19/25 11:05 Freq: Status: Active Protocol: Document 04/22/25 11:05 DLM (Rec: 04/22/25 12:25 DLM Desktop) Physical Therapy Treatment Exercises Exercises Ankle Pumps,Quad Sets,Passive Knee Extension Hang, Seated Knee Flexion/Extension Knee ROM Measurement 5-100 Education Education Provided Safety Other Treatments Other Treatment Discussed barriers to discharge Performed M7 PT-IP Assessment and Plan Start: 04/19/25 11:05 Freq: Status: Active Protocol: Document 04/23/25 09:51 DCW (Rec: 04/23/25 10:26 DCW [id number]) PT Summary Assessment and Plan Summary Impairments Pain,ROM,Strength,Balance,Coordination,Sensation,Bed Mobility,Transfers,Gait,Activity Tolerance Progress Towards Progressing Toward Goals Goals Assessment Summary Pt continues to express desire to return home, however pt appears to have had a slight setback with his knee, complaining of increased pain, swelling, and stiffness today. Continues to be limited with stairs, which makes return home difficult due to 17 DANY. Continue to recommend discharge to SNF. Goals Bed Mobility Goal Independent Transfer Goal Independent,Front Wheeled Walker Gait Goal Independent,Front Wheel Walker Gait Distance 150 feet Other Goals Up/down 17 steps with bilateral rails and CG assist. Days to Meet Goals 15 Frequency of Treatment Frequency Of Once a Day Treatment Treatment Plan Physical Therapy Bed Mobility Training,Transfer Training,Gait Training, Treatment Plan Therapeutic Exercise,Balance Retraining,Discharge Planning,Hot or Cold Pack,Neuromuscular Re-ed,Manual Therapy Other manage right knee pain s/p bleed Recommendations and Next Treatment Focus Weight Bearing Status Weight Bearing Weight Bear as Tolerated Status Allowed Weight right knee Bearing Amount ( enter % or #) (%) Recommendations To Nursing Amount of Assist 1 Person Assist Needed Discharge Recommendations PT Discharge SNF Rehab Recommendations Equipment Needed for needs FWW for home, defer to SNF Home Before Discharge Transportation Needs Private Vehicle,Wheelchair/Cabulance at Discharge - PT assist 1
[2025-04-23] MEDS: CITALOPRAM 10 MG TABLET 20 MG PO ×2 (10:29→20:57)
[2025-04-23] MEDS: SODIUM CHLORIDE 0.9% FLUSH 10 ML IV ×2 (10:36→20:59)
--- NOTE | 2025-04-23 11:30 | PC.NURSE ---
Addendum entered by Cassidy Ferraro RN 04/23/25 12:09: *pruritic rash Original Note: Day shift note: Up OOB to chair and BR. Large BM this shift. Bedside shower/wash up/hygiene provided. Brandan wrap to Right knee, CMS intact. Excellent PO intake. PT at bedside. PO pain medication provided as needed, adequate relief. Hydrocortinose top PRN applied to mid and upper back, and under left chest. Rash improving per patient, non pruritic. Calls appropriately for staff assistance.
[2025-04-23] MEDS: HYDROCORTISONE 2.5% CREAM 30 GM 1 APPLIC TOP ×2 (12:03→21:02)
--- NOTE | 2025-04-23 13:17 | CM.DPNOTE ---
DCP note PERSONNEL GENERALIST MANAGER reviewed EMR [facility]. PERSONNEL GENERALIST MANAGER completed PASRR. CM team will continue to follow closely for DCP Coordination (transport to SNF plan?) [facility]
[2025-04-24 09:00] VITALS: BP 130/61; PULSE 68; RESP 14; TEMP 35.8; O2SAT 94
[2025-04-24] MEDS: HYDROCORTISONE 2.5% CREAM 30 GM 1 APPLIC TOP ×2 (09:51→17:56)
[2025-04-24] MEDS: CITALOPRAM 10 MG TABLET 20 MG PO ×2 (09:51→21:53)
[2025-04-24] MEDS: SODIUM CHLORIDE 0.9% FLUSH 10 ML IV ×2 (10:22→21:54)
--- NOTE | 2025-04-24 15:23 | CM.DPC ---
DCP SNF Planning Cont: Per , pt stable for d/c to SNF once insurance auth obtained. SW called [facility] in [place] admission phone multiple times and left a few urgent msgs requesting update on auth status and called the building and confirmed admission staff working today and was transferred to the office phone and left another msg requesting urgent call back. No answer by end of SW shift today. Son had confirmed that if SNF not an option at d/c then he would be agreeable to transporting pt to his house in [place] with HH but preference is SNF at d/c for strengthening. Son likely will need to provide transportation to SNF if auth approved. BLU Pruitt
--- NOTE | 2025-04-24 17:04 | P.PN_ITS ---
Subjective Subjective Interval history: S: His knee is a little more tender today. He has a the wrapping on and this is somewhat uncomfortable. Otherwise he was doing well, no dyspnea. O: VSS NAD, alert and oriented. Fluent speech. Lungs are clear, normal rate and effort. Heart is regular, no murmur gallop or rub. Abdomen is soft, non distended. Extremities are free of edema. Right lower leg is unwrapped in the knee is less swollen and not warm or red. There was some edema below the wrap. A/P: 1. Right knee hemarthrosis while on apixaban, active. 2. Profound weakness affecting both legs with secondary gait instability. 3. Remote MV repair. 4. Stage 4 prostate cancer. 5. Remote cranial hemangioma. 6. PAF. PLAN: -hold anticoagulation for now. -knee was tapped for 70 mL 04/21. -PT daily. -[facility] for rehabilitation efforts is in progress. -overall, he was slowly improving. Exam Vital Signs (past 8 hours): Fraction of Inspired Oxygen 28 SaO2/FiO2 Ratio 339 Oxygen Delivery Method Room Air Oxygen Flow Rate 0 Objective Labs 04/18/25 12:15 04/18/25 12:15 PFSH Social History household members: none Smoking Status: Never smoker alcohol intake: current Assessment & Plan Time-Based Coding :: [TOTAL MINUTES] spent with patient and on the chart (including review of chart, obtaining history, exam, reviewing outside data, placing orders, documenting exam and treatment plan, and counseling patient) on [DATE]. Quality VTE Deep Vein Thrombosis/Pulmonary Embolism Present on Admission: No
--- NOTE | 2025-04-24 19:06 | PC.NURSE ---
Dr. Flores removed adwoa wrap to patient's knee and says to keep it off at this time. Patient showered with assistance, 1PA with walker. Currently resting in bed, call light within reach.
[2025-04-24 20:00] VITALS: BP 156/75; PULSE 60; RESP 20; TEMP 36.8; O2SAT 98
[2025-04-25 05:14] LABS: Blood Urea Nitrogen 16 mg/dL (9-20); Calcium 9.5 mg/dL (8.4-10.2); Carbon Dioxide 27 mmol/L (22-32); Chloride 106 mmol/L (98-107); Estimated Glomerular Filt Rate > 60 mL/min (>60); Glucose 95 mg/dL (70-99); HEMOLYSIS < 15 (0-50); Potassium 3.9 mmol/L (3.4-5.1); Sodium 140 mmol/L (137-145)
[2025-04-25 05:19] LABS: Add Manual Diff / Slide Review NO; Hematocrit 39.6 % (41-53); Hemoglobin 13.9 g/dL (13.5-17.5); Lymphocytes Absolute Auto 1400 /uL (1100-4500); Mean Corpuscular HGB Conc 35.0 % (30-36); Mean Corpuscular Hemoglobin 30.2 PG (26-34); Mean Corpuscular Volume 86.2 fL (80-100); Platelet Count 209 X10^3/uL (150-400)
[2025-04-25 08:00] VITALS: BP 138/63; PULSE 71; RESP 19; TEMP 36.2; O2SAT 96
[2025-04-25] MEDS: CITALOPRAM 10 MG TABLET 20 MG PO ×2 (08:51→20:51)
[2025-04-25] MEDS: HYDROCORTISONE 2.5% CREAM 30 GM 1 APPLIC TOP (08:56)
--- NOTE | 2025-04-25 11:26 | PM.PN.1 ---
Subjective Subjective Interval history: S: The knee feels a little more swollen and painful today. He would his compression removed yesterday to give him arrest as his lower leg was somewhat swollen from the compression and he was little more uncomfortable. O: VSS NAD, alert and oriented. Fluent speech. Lungs are clear, normal rate and effort. Heart is regular, no murmur gallop or rub. Abdomen is soft, non distended. Extremities are free of edema. The right knee it was modestly swollen but not red or warm and in fact appears to be improved. He was reassured. A/P: 1. Right knee hemarthrosis while on apixaban, active. 2. Profound weakness affecting both legs with secondary gait instability. 3. Remote MV repair. 4. Stage 4 prostate cancer. 5. Remote cranial hemangioma. 6. PAF. PLAN: -hold anticoagulation for now. -knee was tapped for 70 mL 04/21. -PT daily. -retirement facility placement for rehabilitation efforts is in progress. We will continue to hold anticoagulation and he has an authorization for retirement facility but is waiting for an accepting facility. Exam Vital Signs (past 8 hours): - 04/25/25 08:00 Temperature 97.2 F L Pulse Rate 71 Respiratory Rate 19 Blood Pressure 138/63 Pulse Oximetry 96 Oxygen Flow Rate 0 Fraction of Inspired Oxygen 28 SaO2/FiO2 Ratio 339 Oxygen Delivery Method Room Air Oxygen Flow Rate 0 Objective Labs 04/25/25 04:35 04/25/25 04:35 Labs: Laboratory Results - last 24 hr 04/25/25 04:35 WBC 5.4 RBC 4.60 Hgb 13.9 Hct 39.6 L MCV 86.2 MCH 30.2 MCHC 35.0 RDW 13.7 Plt Count 209 Neut % (Auto) 55.5 Lymph % (Auto) 25.8 Parmer % (Auto) 7.0 Eos % (Auto) 10.5 H Baso % (Auto) 1.2 Neut # (Auto) 3000 Lymph # (Auto) 1400 Parmer # (Auto) 400 Eos # (Auto) 600 H Baso # (Auto) 100 Sodium 140 Potassium 3.9 Chloride 106 Carbon Dioxide 27 BUN 16 Creatinine 0.79 Estimated GFR > 60 BUN/Creatinine Ratio 20.3 Glucose 95 Calcium 9.5 PFSH Social History household members: none Smoking Status: Never smoker alcohol intake: current Assessment & Plan Time-Based Coding :: [TOTAL MINUTES] spent with patient and on the chart (including review of chart, obtaining history, exam, reviewing outside data, placing orders, documenting exam and treatment plan, and counseling patient) on [DATE]. Quality VTE Deep Vein Thrombosis/Pulmonary Embolism Present on Admission: No
--- NOTE | 2025-04-25 11:43 | PC.NURSE ---
Dr. Flores asked this RN to re wrap patient's knee with adwoa wraps (done), and that patient can wear it with compression adwoa wrap during day and remove at night. Patient up to chair for lunch, call light within reacch.
--- NOTE | 2025-04-25 14:50 | DIET.CONS2 ---
Dietary Inpatient Consultation Note Admission Date: 04/19/2025 16:22 79 y M admitted for hemarthrosis. Dietitian screened for LOS. EMR reviewed. PO intakes 50-80%. DFM reviewed for meal composition/adequacy. MNA score 14. No nutritional interventions needed at this time. Continue to monitor PO intakes. Diet: 04/19/25 Dinner General (Regular) Diet Diet Modifications: Nutrition Percent Meal Consumed 75% 04/24/25 17:33 Percent Meal Consumed 50% 04/24/25 10:34 Percent Meal Consumed 50% 04/23/25 18:00 Electronically Signed by: Janell Headley 04/25/25 14:50 Clinical Dietitian [address] [address]
--- NOTE | 2025-04-25 15:30 | PT.IPTN ---
Current Diagnoses Hemarthrosis, right knee (04/19/25) Physical Therapy Treatment Note M2 PT-IP Current Condition Start: 04/19/25 11:05 Freq: Status: Active Protocol: Document 04/19/25 14:00 DLM (Rec: 04/19/25 14:24 DLM Desktop) Physical Therapy Current Condition Current Condition Evaluation Date 04/19/25 Treatment Diagnosis right knee injury and pain, impaired gait and mobility Onset Date 04/18/25 M3 PT-IP Subjective Start: 04/19/25 11:05 Freq: Status: Active Protocol: Document 04/25/25 15:24 KJ (Rec: 04/25/25 15:30 KJ [id number]) Subjective Physical Therapy Visit Type Type Treatment Note Visit Start Time 15:01 Visit Stop Time 15:24 Physical Therapy Visit Comments Patient Comments Pt was worried this am about increased swelling and pain in the R knee; he requested to wait until the hospitalist saw him for PT. Dr. Flores was in earlier and rewrapped his knee. Pt states pain in medial aspect of knee which is new but no increase in pain with weight bearing. Patient Goals To eventually go home Therapy Pain Assessment Pain When Pain Assessed During Mobility Location Right Knee Description Aching Pain Management Apply Cold,Re-positioning Techniques M4 PT-IP Mobility and Gait Start: 04/19/25 11:05 Freq: Status: Active Protocol: Document 04/25/25 15:24 KJ (Rec: 04/25/25 15:30 KJ [id number]) PT-Bed Mobility Assessment Supine to Sit Supine to Sit Standby Assistance Sit to Supine Sit to Supine Standby Assistance Scooting Scooting to Edge of Standby Assistance Bed PT-Transfer Assessment Sit to and From Stand Sit to and from Contact Guard Assistance Stand Equipment Transfer Assistive Front Wheeled Walker Device Gait Assessment Gait Gait Assistance Contact Guard Assist Required: Distance (Feet) 100 Assistive Devices Assistive Device Gait Belt,Front Wheeled Walker Gait Deviations General Gait Pattern Step-to Gait Comments Gait Comments steady M5 PT-IP Objective Assessments Start: 04/19/25 11:05 Freq: Status: Active Protocol: Document 04/20/25 10:30 [facility] (Rec: 04/20/25 16:13 [facility] [id number]) Orientation Orientation/Cognition Level of Alertness Alert Language Function No Deficits Noted Ability Safety Awareness Understands Safety Issues Memory Description Senior Living Impaired Gross Range of Motion Lower Extremity ROM Assessment Right Impaired Strength Lower Extremity Strength Assessment Right Impaired Hip 3/5 Knee 3-/5 Ankle 3/5 M6 PT-IP Treatment Start: 04/19/25 11:05 Freq: Status: Active Protocol: Document 04/25/25 15:24 KJ (Rec: 04/25/25 15:30 KJ [id number]) Physical Therapy Treatment Exercises Exercises Ankle Pumps,Gluteal Sets,Quad Sets,Heel Slides,Short Arc Quads Other Treatments Other Treatment instructed on calf stretching ex in sitting and supine Performed using a bath towel. Reviewed ex. Instructed on glut sets M7 PT-IP Assessment and Plan Start: 04/19/25 11:05 Freq: Status: Active Protocol: Document 04/25/25 15:24 KJ (Rec: 04/25/25 15:30 KJ [id number]) PT Summary Assessment and Plan Potential Rehabilitation Excellent Potential Status of Condition Evolving at Evaluation Summary Impairments Pain,Activity Tolerance Assessment Summary Pt will need to climb 22 steps to get into house. Currently has only done 3 steps. Treatment Plan Physical Therapy Gait Training,Therapeutic Exercise Treatment Plan Other stairs Recommendations and Next Treatment Focus
--- NOTE | 2025-04-25 15:55 | CM.DPNOTE ---
DCP Continued: Reviewed EMR and team rounds for pt?s medical status. Per hospitalist, pt medically cleared for discharge when SNF is confirmed. ENERGY AUDITOR spoke with Xanderkimberly at [facility] in [place] and confirmed pt obtained [employer] auth for SNF. Auth# [id number]. States he will return call when acceptance time is confirmed. ENERGY AUDITOR called again to follow up at 1500, left message and requested call back. ph# [phone]. ENERGY AUDITOR spoke with patient in the room and updated on authorization, pending accepting time and date. Patient states he would prefer if his son, Christian, would transport him to the SNF. He will need to coordinate this when acceptance time is confirmed. PASRR completed. Plan: Anticipating transfer to [facility] when accepting time confirmed by SNF, son will transport. CM Team will continue to follow for coordination of discharge plans. TEODORO Odonnell
[2025-04-26 08:00] VITALS: BP 155/74; PULSE 61; RESP 12; TEMP 35.9; O2SAT 97
[2025-04-26] MEDS: CITALOPRAM 10 MG TABLET 20 MG PO ×2 (09:17→20:37)
--- NOTE | 2025-04-26 10:54 | P.PN_ITS ---
Subjective Subjective Interval history: S: He was improving. Less swollen. O: VSS NAD, alert and oriented. Fluent speech. Lungs are clear, normal rate and effort. Heart is regular, no murmur gallop or rub. Abdomen is soft, non distended. Extremities are free of edema. Right knee is unwrapped, very little extra fluid, no redness or warmth. A/P: 1. Right knee hemarthrosis while on apixaban, active. 2. Profound weakness affecting both legs with secondary gait instability. 3. Remote MV repair. 4. Stage 4 prostate cancer. 5. Remote cranial hemangioma. 6. PAF. PLAN: -resume anticoagulation today, discussed risks and benefits with the patient. -[facility] facility acceptance is delayed until Thursday, this is a discharge delay. -continue intermittent knee compression, physical therapy, and add occupational therapy. Exam Vital Signs (past 8 hours): - 04/26/25 08:00 Temperature 96.7 F L Pulse Rate 61 Respiratory Rate 12 Blood Pressure 155/74 H Pulse Oximetry 97 Oxygen Flow Rate 0 Fraction of Inspired Oxygen 28 SaO2/FiO2 Ratio 339 Oxygen Delivery Method Room Air Oxygen Flow Rate 0 Objective Labs 04/25/25 04:35 04/25/25 04:35 PFSH Social History household members: none Smoking Status: Never smoker alcohol intake: current Assessment & Plan Time-Based Coding :: [TOTAL MINUTES] spent with patient and on the chart (including review of chart, obtaining history, exam, reviewing outside data, placing orders, documenting exam and treatment plan, and counseling patient) on [DATE]. Quality VTE Deep Vein Thrombosis/Pulmonary Embolism Present on Admission: No
--- NOTE | 2025-04-26 11:22 | CM.DPC ---
DCP Cont. Reviewed EMR and team rounds for pt's medical status and updates. Spoke with [facility], they cannot take pt until Thursday. Call early Thursday to confirm acceptance time. Updated pt and nurse.
[2025-04-26] MEDS: APIXABAN 5 MG TABLET PO ×2 (11:28→20:37)
--- NOTE | 2025-04-26 11:53 | PT.IPTN ---
Current Diagnoses Hemarthrosis, right knee (04/19/25) Physical Therapy Treatment Note M2 PT-IP Current Condition Start: 04/19/25 11:05 Freq: Status: Active Protocol: Document 04/19/25 14:00 DLM (Rec: 04/19/25 14:24 DLM Desktop) Physical Therapy Current Condition Current Condition Evaluation Date 04/19/25 Treatment Diagnosis right knee injury and pain, impaired gait and mobility Onset Date 04/18/25 M3 PT-IP Subjective Start: 04/19/25 11:05 Freq: Status: Active Protocol: Document 04/26/25 11:53 DLM (Rec: 04/26/25 13:34 DLM Desktop) Subjective Physical Therapy Visit Type Type Treatment Note Visit Start Time 11: Visit Stop Time 11:53 Notes 28 min Number of [employer]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 He describes sharp pain medial knee joint area during weight bearing with gait; not with exercises. Patient Goals He wants to get well and go home. Therapy Pain Assessment Pain When Pain Assessed During Mobility Pain Present Pain Present Pain Reported Location Right Knee Intensity 6 Scale Used Numeric (0 - 10) Description Aching,Sharp,Tender,With Movement Pain Behaviors Facial Grimacing,Wincing Pain Management Elevation,Re-positioning,Timing of Activity with Techniques Medications M4 PT-IP Mobility and Gait Start: 04/19/25 11:05 Freq: Status: Active Protocol: Document 04/26/25 11:53 DLM (Rec: 04/26/25 13:34 DLM Desktop) PT-Bed Mobility Assessment Supine to Sit Supine to Sit Independent Scooting Scooting to Edge of Independent Bed PT-Transfer Assessment Sit to and From Stand Sit to and from Standby Assistance Stand Equipment Transfer Assistive Front Wheeled Walker Device Transfers Transfer Destination Chair Transfer Technique Stand Step Pivot Transfer Ability Level of Assist Standby Assistance,Use of Upper Extremities Comments Mobility Comments pt in bed resting at start of visit but up to recliner after gait Gait Assessment Gait Gait Assistance Contact Guard Assist Required: Distance (Feet) 150 Assistive Devices Assistive Device Gait Belt,Front Wheeled Walker Gait Deviations General Gait Pattern Antalgic,Decreased Stride Length,Step-to Gait Factors Limiting Gait Function Factors Limiting Decreased Activity Tolerance,Decreased Strength,Limited Gait Function Range of Motion,Pain,Poor Balance Stair Climbing Assessment Comments Stair Climbing he declined stairs this visit due to sharp intermittent Comments medial knee pain during gait PT-Balance Assessment Sitting Balance and Reactions Static Sitting Normal Balance Ability Dynamic Sitting Normal Balance Ability Standing Balance and Reactions Static Standing Good Balance Ability Dynamic Standing Fair Balance Ability Device Used fWW M5 PT-IP Objective Assessments Start: 04/19/25 11:05 Freq: Status: Active Protocol: Document 04/20/25 10:30 [facility] (Rec: 04/20/25 16:13 [facility] [id number]) Orientation Orientation/Cognition Level of Alertness Alert Language Function No Deficits Noted Ability Safety Awareness Understands Safety Issues Memory Description Wire Drawer Impaired Gross Range of Motion Lower Extremity ROM Assessment Right Impaired Strength Lower Extremity Strength Assessment Right Impaired Hip 3/5 Knee 3-/5 Ankle 3/5 M6 PT-IP Treatment Start: 04/19/25 11:05 Freq: Status: Active Protocol: Document 04/26/25 11:53 DLM (Rec: 04/26/25 13:34 DLM Desktop) Physical Therapy Treatment Exercises Exercises Ankle Pumps,Quad Sets,Straight Leg Raises,Seated Knee Flexion/Extension Education Education Provided Safety Other Treatments Other Treatment pt educated to rest right knee in extension with foot Performed straight up, avoid right LE rolling out in a flexed and external rotated position M7 PT-IP Assessment and Plan Start: 04/19/25 11:05 Freq: Status: Active Protocol: Document 04/26/25 11:53 DLM (Rec: 04/26/25 13:34 DLM Desktop) PT Summary Assessment and Plan Summary Impairments Pain,ROM,Strength,Balance,Gait,Activity Tolerance Progress Towards Slow Progress due to Pain Goals Assessment Summary Eulalio is progressing slowly this admission with ongoing right knee pain that limits his activity. He shows good improvement in his pain since his initial visit in [place] Today he had more sharp pain in the medical knee during gait than on prior visits. His knee active range of motion and strength are slowly improving. He continues to be unable to do up the stairs to get back into his home due to right knee limitations. Continue to recommend SNF rehab at discharge to assist with his functional recovery. Goals Bed Mobility Goal Independent Transfer Goal Independent,Front Wheeled Walker Gait Goal Independent,Front Wheel Walker Gait Distance 150 feet Other Goals Up/down 17 steps with bilateral rails and CG assist. Days to Meet Goals 15 Treatment Plan Physical Therapy Gait Training,Therapeutic Exercise,Balance Retraining, Treatment Plan Discharge Planning,Hot or Cold Pack,Neuromuscular Re-ed Other stairs Recommendations and Next Treatment Focus Precautions Other Precautions acute bleed in right knee without trauma Weight Bearing Status Weight Bearing Weight Bear as Tolerated Status Allowed Weight right LE s/p bleed into knee Bearing Amount ( enter % or #) (%) Recommendations To Nursing Amount of Assist 1 Person Assist Needed Discharge Recommendations PT Discharge SNF Rehab Recommendations Other Discharge his Son can transport him Recommendations Transportation Needs Private Vehicle,Wheelchair/Cabulance at Discharge - PT assist 1
--- NOTE | 2025-04-26 12:15 | OT.IP.EVAL ---
Current Diagnoses Hemarthrosis, right knee (04/19/25) Occupational Therapy Inpatient Evaluation/Re-Eval M1 OT IP Prior Functional Status Start: 04/26/25 12:27 Freq: Status: Active Protocol: Document 04/26/25 12:27 [facility] (Rec: 04/26/25 12:50 [facility] Desktop) Medical Review Prior Functional Status Medical History Yes Reviewed Diet/Fluid Regular Consistency Communication WFL Mobility and Gait Independent without device Activities of Daily Independent. He drives Living and IADL's Prior Functional He has been going to MD visits and medical appointments Level (Other details related to his prostate cancer. ) He has support of local [employer] and [employer]. His DIL works. His Son lives in [place]. He can not think of anywhere else he can stay at discharge (no family/friends) that would have a more accessible home. Social History Household Members none Living Arrangements Apartment/Condo Number of Floors ( One Floor Floors) Number of Stairs To 17 steps to enter with bilateral rails, inside stairs Enter/Railing? that are private to his apt Home Environment Standard Height Toilet,Walk in Shower Home Equipment Four Wheel Walker,Straight Cane Employment Status Retired Additional Social the 4WW belonged to his History Comment M2 OT-IP Current Condition Start: 04/26/25 12:27 Freq: Status: Active Protocol: Document 04/26/25 12:27 [facility] (Rec: 04/26/25 12:50 [facility] Desktop) Occupational Therapy Current Condition Current Condition Evaluation Date 04/26/25 Treatment Diagnosis Right knee pain Diagnosis Onset Date 04/19/25 M3 OT- IP Subjective and Pain Start: 04/26/25 12:27 Freq: Status: Active Protocol: Document 04/26/25 12:27 [facility] (Rec: 04/26/25 12:50 [facility] Desktop) OT- Subjective Occupational Therapy Visit Type Type Initial Evaluation Visit Start Time 11:45 Visit Stop Time 12:15 Occupational Therapy Visit Comments Patient Comments Pt agreed to do OT eval. Patient/Caregiver To get better. Goals OT Pain Assessment Pain When Pain Assessed At Rest Pain Present Pain Present Denied Pain M4 OT- IP ADL's Start: 04/26/25 12:27 Freq: Status: Active Protocol: Document 04/26/25 12:27 [facility] (Rec: 04/26/25 12:50 [facility] Desktop) OT [id number] General Evaluation Self-Feeding Ability Independent OT ADL-Grooming Comments OT Grooming Comments Not performed. OT ADL-Oral Care Comments Oral Care Comments Not performed. OT ADL-Dressing General Eval Lower Body Dressing Standby Assistance Ability Comments OT Dressing Comments Pt able to luis alberto/doff socks while seated. Able to go over LB dressing equipment with pt. Pt feels does not need it at this time. OT ADL-Toileting Comments OT Toileting Pt states at home has to get up 6-7 times at night. Comments Suggested pt to have urinal and be sure to have night light on in the bathroom. OT ADL-Bathing Comments OT Bathing Comments Suggested best to have shower chair for safety and HHPS . M5 OT- IP IADL's Start: 04/26/25 12:27 Freq: Status: Active Protocol: Document 04/26/25 12:27 [facility] (Rec: 04/26/25 12:50 [facility] Desktop) OT-Instrumental Activities of Daily Living Home Safety Awareness Ability to Problem Able to Problem Solve Solve Emergency Situations Medication Management Medication No Deficits Identified Management Money Management Money Management No Deficits Identified Inspector Receiving Inspector Receiving Pt may benefit from assist initially. Comments M6 OT- IP Functional Cognition Start: 04/26/25 12:27 Freq: Status: Active Protocol: Document 04/26/25 12:27 [facility] (Rec: 04/26/25 12:50 [facility] Desktop) Cognitive Factors Limiting Selfcare Function Cognitive Ability Level of Alertness Alert Patient Orientation Name,Age,Birthday,Month,Date,Year,Day of Week,Place, Situation Attention Span Capable of Focused Attention,Capable of Sustained Ability Attention Ability to Follow Able to Follow Multi-Step Commands Commands Safety Awareness Underestimates Need for Assistance Cognitive Tests SLUMS Pt scored 28/30 on the SLUMS which implies normal for cognition. Pt however admits a little groggy and slow for calculations but able to do correctly with increased time. Pt feels that the pain meds are making him a bit groggy. Cognitive Comments Cognitive Assessment Pt needing reminders to safety to call for assist andn use the FWW so Comments able to unweight his right knee when up on his feet. Pt feels that his main limitation is the stairs at home and agreeing to go to skilled rehab. OT- Vision and Hearing OT- Hearing Assessment OT- Hearing Hearing Impaired Assessment OT- Vision Assessment Visual Acuity Glasses All The Time Visual Attentiveness WFL Occular Pursuits WFL M7 OT- IP Mobility and Balance Start: 04/26/25 12:27 Freq: Status: Active Protocol: Document 04/26/25 12:27 [facility] (Rec: 04/26/25 12:50 [facility] Desktop) OT-Transfer Assessment Sit to and From Stand Sit to and from Standby Assistance Stand OT- Balance Assessment Sitting Balance and Reactions Static Sitting Normal Balance Ability Dynamic Sitting Normal Balance Ability Standing Balance and Reactions Static Standing Good Balance Ability M8 OT- IP Objective Assessments Start: 04/26/25 12:27 Freq: Status: Active Protocol: Document 04/26/25 12:27 [facility] (Rec: 04/26/25 12:50 [facility] Desktop) OT Gross Range of Motion Upper Extremity Range of Motion Assessment Within Functional Limits OT Strength Upper Extremity Strength Assessment Within Functional Limits M9 OT- IP Assessment and Plan Start: 04/26/25 12:27 Freq: Status: Active Protocol: Document 04/26/25 12:27 [facility] (Rec: 04/26/25 12:50 [facility] Desktop) OT Summary Assessment and Plan Potential Rehabilitation Excellent Potential Analytic Complexity Low at Evaluation Summary OT Impairments Pain,Strength,Balance,Functional Mobility,Dressing, Toileting,Bathing,Toilet Transfers,Shower Transfers, Activity Tolerance Progress Towards Progressing Toward Goals,Slow Progress due to Pain Goals Assessment Summary Pt Low complexity and main barriers are steps and pain. Pt admits still feels a little groggy from pain medications and scored 28/30 on the SLUMS which implies normal for cognitive needs. Able to go over ADL equipment needs with pt. Pt to go to skilled rehab when medically stable. Goals Dressing Goal Independent Toileting Goal Independent Bathing Goal Independent Toilet Transfer Goal Independent Shower Transfer Goal Independent Days to Meet Goals 7 Frequency of Treatment Other frequency 5x/week Treatment Plan OT Treatment Plan ADL Training,Functional Mobility,Patient/Family Education,Discharge Planning Discharge Recommendations OT Discharge SNF Rehab Recommendations Home Equipment Needs shower chair, FWW Transportation Needs Private Vehicle at Discharge
[2025-04-26 19:56] VITALS: BP 152/69; PULSE 64; RESP 16; TEMP 35.9; O2SAT 96
[2025-04-26] MEDS: HYDROCORTISONE 2.5% CREAM 30 GM 1 APPLIC TOP (20:42)
--- NOTE | 2025-04-27 00:48 | PC.NURSE ---
Patient is alert and oriented. Breath sounds CTA with RA sat of 96%. HRR. Denied nausea. BT present, is passing flatus and reports having had BM on previous shift. Is voiding per urinal and denied any dysuria. When out of bed he is using a walker and provided SBA for safety; reports weakness and pain in right knee. Chronic numbness of bilateral feet and fingers of both hands but is unchanged from prior to admission. Right knee is still swollen but no redness noted. Is taking po Percocet and Vicodin for pain control and reports pain is usually tolerable when at 5/10. Refusing SCD's so reminded to ankle wave when awake. Fall risk score is moderate and bed alarm is activated.
--- NOTE | 2025-04-27 07:28 | P.PN_ITS ---
Subjective Subjective Interval history: S: His knee feels better today. He did well with physical therapy. O: VSS NAD, alert and oriented. Fluent speech. Lungs are clear, normal rate and effort. Heart is regular, no murmur gallop or rub. Abdomen is soft, non distended. Extremities are free of edema. The right knee swelling is resolved and he was a much better active and passive range of motion. A/P: 1. Right knee hemarthrosis while on apixaban, active. 2. Profound weakness affecting both legs with secondary gait instability. 3. Remote MV repair. 4. Stage 4 prostate cancer. 5. Remote cranial hemangioma. 6. PAF. PLAN: -resume anticoagulation today, discussed risks and benefits with the patient. -nursing home facility acceptance is delayed until Thursday, this is a discharge delay. -continue intermittent knee compression, physical therapy, and add occupational therapy. Exam Vital Signs (past 8 hours): Fraction of Inspired Oxygen 28 SaO2/FiO2 Ratio 339 Oxygen Delivery Method Room Air Oxygen Flow Rate 0 Objective Labs 04/25/25 04:35 04/25/25 04:35 PFSH Social History household members: none Smoking Status: Never smoker alcohol intake: current Assessment & Plan Time-Based Coding :: [TOTAL MINUTES] spent with patient and on the chart (including review of chart, obtaining history, exam, reviewing outside data, placing orders, documenting exam and treatment plan, and counseling patient) on [DATE]. Quality VTE Deep Vein Thrombosis/Pulmonary Embolism Present on Admission: No
[2025-04-27 07:38] VITALS: BP 166/67; PULSE 59; RESP 16; TEMP 36.3; O2SAT 97
[2025-04-27] MEDS: CITALOPRAM 10 MG TABLET 20 MG PO ×2 (09:39→20:39)
[2025-04-27] MEDS: APIXABAN 5 MG TABLET PO ×2 (09:39→20:39)
--- NOTE | 2025-04-27 14:52 | PT.IPTN ---
Current Diagnoses Hemarthrosis, right knee (04/19/25) Physical Therapy Treatment Note M2 PT-IP Current Condition Start: 04/19/25 11:05 Freq: Status: Active Protocol: Document 04/19/25 14:00 [facility] (Rec: 04/19/25 14:24 [facility] Desktop) Physical Therapy Current Condition Current Condition Evaluation Date 04/19/25 Treatment Diagnosis right knee injury and pain, impaired gait and mobility Onset Date 04/18/25 M3 PT-IP Subjective Start: 04/19/25 11:05 Freq: Status: Active Protocol: Document 04/27/25 14:08 [facility] (Rec: 04/27/25 14:52 [facility] Desktop) Subjective Physical Therapy Visit Type Type Treatment Note Visit Start Time 14:08 Visit Stop Time 14:39 Number of SYSTEMS ENG Visits 0 Physical Therapy Visit Comments Patient Comments Pain and edema are better Therapy Pain Assessment Pain When Pain Assessed At Rest Pain Present Pain Present Pain Reported Location Right Knee Intensity 5 Scale Used Numeric (0 - 10) Pain Management Apply Cold,Distraction,Elevation,Modification of Techniques Treatment,Re-positioning M4 PT-IP Mobility and Gait Start: 04/19/25 11:05 Freq: Status: Active Protocol: Document 04/27/25 14:08 [facility] (Rec: 04/27/25 14:52 [facility] Desktop) PT-Bed Mobility Assessment Supine to Sit Supine to Sit Independent Sit to Supine Sit to Supine Independent Scooting Scooting to Edge of Independent Bed PT-Transfer Assessment Sit to and From Stand Sit to and from Independent,Standby Assistance Stand Equipment Transfer Assistive Gait Belt,Front Wheeled Walker Device Transfers Transfer Destination Bed Transfer Technique Ambulation Transfer Ability Level of Assist Independent Comments Mobility Comments Initially cues for hand placement and then I Gait Assessment Gait Gait Assistance Independent Required: Distance (Feet) 150 Assistive Devices Assistive Device Gait Belt,Front Wheeled Walker Gait Deviations General Gait Pattern Antalgic,Decreased Stride Length Factors Limiting Gait Function Factors Limiting Pain Gait Function Comments Gait Comments 100'x1, 150'x1 Stair Climbing Assessment Evaluation Level of Assist On Standby Assistance Stairs Devices Stair Climbing Left Railing,Right Railing Assistive Devices Technique/Endurance Stair Climbing Ascend and Descend Direction Stair Climbing Step to Step Technique Number of Steps 3 Climbed Stair Climbing Set # 2 Repetitions (reps) Comments Stair Climbing Up and down 3 steps x2 is 12 steps and pt has 17 to Comments enter home and can rest in middle of stair set. Ed on up first with left foot and down first with left foot, practiced ascend backwards and ascend forwards and pt can perform both ways. Son and partner available during education PT-Balance Assessment Sitting Balance and Reactions Static Sitting Normal Balance Ability Dynamic Sitting Normal Balance Ability Standing Balance and Reactions Static Standing Good Balance Ability Dynamic Standing Good Balance Ability Device Used RW M5 PT-IP Objective Assessments Start: 04/19/25 11:05 Freq: Status: Active Protocol: Document 04/20/25 10:30 [facility] (Rec: 04/20/25 16:13 [facility] [id number]) Orientation Orientation/Cognition Level of Alertness Alert Language Function No Deficits Noted Ability Safety Awareness Understands Safety Issues Memory Description 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 Gross Range of Motion Lower Extremity ROM Assessment Right Impaired Strength Lower Extremity Strength Assessment Right Impaired Hip 3/5 Knee 3-/5 Ankle 3/5 M6 PT-IP Treatment Start: 04/19/25 11:05 Freq: Status: Active Protocol: Document 04/27/25 14:08 [facility] (Rec: 04/27/25 14:52 [facility] Desktop) Physical Therapy Treatment Exercises Exercises Ankle Pumps,Quad Sets Education Education Provided Safety Equipment Issued Equipment Type and [employer] Other Treatments Other Treatment Use of ice 3-4x day at home, performance of LAQ in Performed sitting and elevation of leg M7 PT-IP Assessment and Plan Start: 04/19/25 11:05 Freq: Status: Active Protocol: Document 04/27/25 14:08 [facility] (Rec: 04/27/25 14:52 [facility] Desktop) PT Summary Assessment and Plan Potential Rehabilitation Excellent Potential Status of Condition Stable at Evaluation Summary Impairments Pain Progress Towards Progressing Toward Goals Goals Assessment Summary Pt has met acute PT goals and so will d/c PT. He is able to ascend steps with SBA and both rails. PT issued walker for use at d/c. Son and partner nearby for treatment. Recommend increased assistance if needed at d/c. Recommendations To Nursing Amount of Assist Standby Assistance Needed Discharge Recommendations PT Discharge Home,Home with Assistance Recommendations Other Discharge HHPT if needed and progress to OPPT if needed Recommendations Transportation Needs Private Vehicle at Discharge
--- NOTE | 2025-04-27 15:00 | CM.DPC ---
DCP Home with HH Planning: Per MD, pt made good progress today and worked with PT and able to complete stairs and now plan of home with son support and HH. SW met bedside with pt, son Christian and his and they confirm that SNF no longer needed and pt wants to discharge to his home in [place] with son to help transport and get him inside and other family and friends will help with shopping and food. Discussed HH services and frequency and they feel HH would be very needed and beneficial. SW provided HH Choice list and no preference and [facility] referral made based on Vendor Calendar and [facility] [facility]. F2F still needed. Son confirms he will arrive tomorrow 04/28 around 1100 and transport pt home and stop to get prescription at [facility] and ensure pt gets up the stairs safely. Updated MD. Plan: SW to confirm [facility] can accept and to complete F2F for plan of home tomorrow Thursday via son Christian's POV around 1100. [facility] [place]
--- NOTE | 2025-04-27 15:05 | OT.IP.TRT ---
Current Diagnoses Hemarthrosis, right knee (04/19/25) Occupational Therapy Treatment Note M2 OT-IP Current Condition Start: 04/26/25 12:27 Freq: Status: Active Protocol: Document 04/26/25 12:27 [facility] (Rec: 04/26/25 12:50 [facility] Desktop) Occupational Therapy Current Condition Current Condition Evaluation Date 04/26/25 Treatment Diagnosis Right knee pain Diagnosis Onset Date 04/19/25 M3 OT- IP Subjective and Pain Start: 04/26/25 12:27 Freq: Status: Active Protocol: Document 04/27/25 15:07 [facility] (Rec: 04/27/25 15:11 [facility] Desktop) OT- Subjective Occupational Therapy Visit Type Type Treatment Note Visit Start Time 14:57 Visit Stop Time 15:05 Occupational Therapy Visit Comments Patient Comments Pt just finished doing the stairs with PT. Able to go over ADL equipment needs with pt. Patient/Caregiver TO go home. Goals M4 OT- IP ADL's Start: 04/26/25 12:27 Freq: Status: Active Protocol: Document 04/27/25 15:07 [facility] (Rec: 04/27/25 15:11 [facility] Desktop) OT ADL-Dressing Comments OT Dressing Comments Spoke of LB dressing equipment to increased ease for LB dressing needs. OT ADL-Toileting Comments OT Toileting Pt will benefit from urinal at home and and possibly Comments BSC. OT ADL-Bathing Comments OT Bathing Comments Suggested pt get a shower chair and HHSP. M5 OT- IP IADL's Start: 04/26/25 12:27 Freq: Status: Active Protocol: Document 04/26/25 12:27 [facility] (Rec: 04/26/25 12:50 [facility] Desktop) OT-Instrumental Activities of Daily Living Home Safety Awareness Ability to Problem Able to Problem Solve Solve Emergency Situations Medication Management Medication No Deficits Identified Management Money Management Money Management No Deficits Identified Striper Spray Gun Striper Spray Gun Pt may benefit from assist initially. Comments M6 OT- IP Functional Cognition Start: 04/26/25 12:27 Freq: Status: Active Protocol: Document 04/26/25 12:27 [facility] (Rec: 04/26/25 12:50 [facility] Desktop) Cognitive Factors Limiting Selfcare Function Cognitive Ability Level of Alertness Alert Patient Orientation Name,Age,Birthday,Month,Date,Year,Day of Week,Place, Situation Attention Span Capable of Focused Attention,Capable of Sustained Ability Attention Ability to Follow Able to Follow Multi-Step Commands Commands Safety Awareness Underestimates Need for Assistance Cognitive Tests SLUMS Pt scored 28/30 on the SLUMS which implies normal for cognition. Pt however admits a little groggy and slow for calculations but able to do correctly with increased time. Pt feels that the pain meds are making him a bit groggy. Cognitive Comments Cognitive Assessment Pt needing reminders to safety to call for assist so Comments able to unweight his right knee to help with his pain. Pt feels that his main limitation in the stairs at home and agreeing to go to skilled rehab. OT- Vision and Hearing OT- Hearing Assessment OT- Hearing Hearing Impaired Assessment OT- Vision Assessment Visual Acuity Glasses All The Time Visual Attentiveness WFL Occular Pursuits WFL M7 OT- IP Mobility and Balance Start: 04/26/25 12:27 Freq: Status: Active Protocol: Document 04/26/25 12:27 [facility] (Rec: 04/26/25 12:50 [facility] Desktop) OT-Transfer Assessment Sit to and From Stand Sit to and from Standby Assistance Stand OT- Balance Assessment Sitting Balance and Reactions Static Sitting Normal Balance Ability Dynamic Sitting Normal Balance Ability Standing Balance and Reactions Static Standing Good Balance Ability M8 OT- IP Objective Assessments Start: 04/26/25 12:27 Freq: Status: Active Protocol: Document 04/26/25 12:27 [facility] (Rec: 04/26/25 12:50 [facility] Desktop) OT Gross Range of Motion Upper Extremity Range of Motion Assessment Within Functional Limits OT Strength Upper Extremity Strength Assessment Within Functional Limits M9 OT- IP Assessment and Plan Start: 04/26/25 12:27 Freq: Status: Active Protocol: Document 04/27/25 15:07 [facility] (Rec: 04/27/25 15:11 [facility] Desktop) OT Summary Assessment and Plan Potential Rehabilitation Excellent Potential Analytic Complexity Low at Evaluation Summary Progress Towards Progressing Toward Goals Goals Assessment Summary Pt doing much better today and looking to go home tomorrow. Able to go over OT equipment needs with pt. Pt to go home with assist and home health. Goals Dressing Goal Independent Toileting Goal Independent Bathing Goal Independent Toilet Transfer Goal Independent Shower Transfer Goal Independent Days to Meet Goals 4 Treatment Plan OT Treatment Plan ADL Training,Functional Mobility,Patient/Family Education,Discharge Planning Discharge Recommendations OT Discharge Home with Assistance,Home Health Recommendations Home Equipment Needs Shower chair, FWW issued already, HHSP, LB dressing equipment. Transportation Needs Private Vehicle at Discharge
[2025-04-27 22:22] VITALS: BP 145/75; PULSE 72; RESP 15; TEMP 36; O2SAT 96
[2025-04-28 08:00] VITALS: BP 129/76; PULSE 67; RESP 16; TEMP 36.2; O2SAT 97
[2025-04-28] MEDS: CITALOPRAM 10 MG TABLET 20 MG PO (08:08)
[2025-04-28] MEDS: APIXABAN 5 MG TABLET PO (08:11)
--- NOTE | 2025-04-28 08:41 | PC.NURSE ---
Addendum entered by Pattie Pina, RN 04/28/25 11:58: Pt home instructions given. Transportation here, Pt escorted by staff via W/C to waiting vehicle D/C in stable status Original Note: Pt A/O Med for discomfort at 0820 w/ good relief. Good appetite; SBA to BR Pt states he is hoping to D/C today. Has home meds in pharmacy Call light w/in reach; pt calls appropriately for needs.
--- NOTE | 2025-04-28 09:20 | PM.DS.1 ---
History of Present Illness History of Present Illness Chief complaint: right knee pain Narrative: From H&P: 79-year-old male who lives alone evaluated in the emergency department for severe knee pain with findings of knee arthrosis. Below is the emergency room narrative. Apparently patient was attempted to be placed or find a disposition for multiple emergency room shift but were unable to accomplish such. Request for the hospitalist service to place on the floor due to a very prolonged emergency room stay until a long term facility disposition could be arranged for the patient. 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 04/18/25 18:19 Consult to Physical Therapy Evaluate & Treat Comment: Physician Instructions: Evaluate and Treat 04/26/25 10:55 Consult to Occupational Therapy Evaluate & Treat Comment: Physician Instructions: Evaluate and treat 04/27/25 14:32 Consult to Physical Therapy Evaluate & Treat Comment: Knee Hemarthrosis Physician Instructions: Set up FWW for home use. Discharge provider: Nick Flores MD Summary Hospital Course Discharge Diagnosis: 1. Right knee hemarthrosis while on apixaban, active. 2. Profound weakness affecting both legs with secondary gait instability. 3. Remote MV repair. 4. Stage 4 prostate cancer. 5. Remote cranial hemangioma. 6. PAF. Hospital Course: Patient was admitted with a right knee hemarthrosis. Initial aspiration of 10 mL in the ED yielded no growth of organisms. The patient had persistent pain and was seen by Orthopedics and underwent a aspiration of a larger volume of blood on March 21. In the next several days he still had a lot of pain with ambulation and very poor gait stability. Interventions included requesting approval for a long term facility. There was a delay based on pair approval. Over the last 2 days of his admission, he would remarkable improvement of the knee mobility and decreased pain. Over the last day he was able to demonstrate ability to safely ambulate and was felt to be suitable for discharge directly home. Status at Discharge Cognitive/behavioral status at discharge: oriented Functional status at discharge: uses cane/walker Overall status at discharge: patient is progressing back to baseline Time Spent with Patient Time spent: Greater than 30 minutes Exam Vital Signs (past 8 hours): - 04/28/25 08:00 04/28/25 08:00 Temperature 97.2 F L 97.2 F L Pulse Rate 67 67 Respiratory Rate 16 16 Blood Pressure 129/76 129/76 Pulse Oximetry 97 97 Oxygen Flow Rate 0 0 Fraction of Inspired Oxygen 28 SaO2/FiO2 Ratio 339 Oxygen Delivery Method Room Air Oxygen Flow Rate 0 Narrative Exam Narrative: Discharge exam: NAD, alert and oriented. Fluent speech. Lungs are clear, normal rate and effort. Heart is regular, no murmur gallop or rub. Abdomen is soft, non distended. Extremities are free of edema. Right knee is not swollen, red, or warm and has good mobility today. Objective Labs 04/25/25 04:35 04/25/25 04:35 [facility] Social History household members: none Smoking Status: Never smoker alcohol intake: current Discharge Assessment & Plan Assessment and Plan Assessment: 1. Right knee hemarthrosis while on apixaban, active. 2. Profound weakness affecting both legs with secondary gait instability. 3. Remote MV repair. 4. Stage 4 prostate cancer. 5. Remote cranial hemangioma. 6. PAF. Plan of Treatment: Discharge home on his usual medications. He was apixaban was restarted on the 18/11. He was given a small number pain pills for pain and we will be followed by home health. Discharge Plan Discharge Plan Patient Disposition: Home Provider Discharge Comment: Stable for discharge home. Discharge orders & Medications Prescriptions: New hydrocodone-acetaminophen 5-325 mg Tablet 2 tab PO Q4H PRN (Reason: Pain, Severe (7-10)) Qty: 14 0RF atenolol 25 mg Tablet 50 mg PO BID Qty: 60 0RF Eliquis 5 mg Tablet 5 mg PO BID Qty: 60 0RF Continued citalopram 20 mg tablet 20 mg PO BID albuterol 90 mcg/actuation aerosol inhalation ascorbic acid (vitamin C) PO calcium phos,dibas-vitamin D3 [Vitamin D (with calcium)] PO Medication counseling provided by Pharmacist: No Follow up/Referrals: Twin Schaefer MD [Primary Care Provider, Family Practice] Discharge Health Status Multidrug resistant organism: No MDRO Diet/Activity/Treatments Diet: Regular Visit Report/Discharge Packet Instructions: DI for Hemarthrosis Stand Alone Forms: Patient Portal/API Discharge Data Primary Care Provider: Twin Schaefer Quality VTE Deep Vein Thrombosis/Pulmonary Embolism Present on Admission: No
--- NOTE | 2025-04-28 10:53 | CM.DPC ---
DCP Cont. Reviewed EMR and team rounds for pt's medical status and updates. Pt has been medically cleared to d/c home. His son will transport him around 11:00am. Will send [facility] the f/f and d/c order/summary. No further d/c needs identified at this time.
== END 2025-04-28 11:55 | disposition home health service (06) | DRG 554 ==
LOC: ED 04-19 08:30 → AC 04-19 16:23
PROVIDERS: Emergency Medicine; Hospitalist; Admitting Provider Internal Medicine; Emergency Provider Emergency Medicine; PCP Family Medicine; Referring Provider Emergency Medicine; Visit Provider Internal Medicine
DX: M25.061 Hemarthrosis, right knee (principal); C79.51 Secondary malignant neoplasm of bone; C78.00 Secondary malignant neoplasm of unspecified lung; C61 Malignant neoplasm of prostate; R26.89 Other abnormalities of gait and mobility; R53.1 Weakness; I10 Essential (primary) hypertension; I48.0 Paroxysmal atrial fibrillation; Z79.01 Long term (current) use of anticoagulants; Z95.2 Presence of prosthetic heart valve; Z86.79 Personal history of other diseases of the circulatory system; Z86.69 Personal history of other diseases of the nervous system and sense organs
CPT/HCPCS: 20610; 36415; 73562; 73700; 80048; 80053; 80305; 80320; 83605; 83690; 85025; 85610; 85651; 85730; 86140; 87070; 87075; 87205; 89060; 93005; 93010; 94762; 96365; 96375; 96376; 97110; 97116; 97162; 97165; 97530; 97535; 99284; 99285; J0131; J1171; J2272; J2405